=== PATIENT | female | born 1950 | race Caucasian/White ===

== ENCOUNTER → 2018-06-20 08:19 | Outpatient (CLI) | payer MEDICARE, OTHER, SELFPAY ==
[2018-06-20 09:26] LABS: Add Manual Diff / Slide Review NO; Basophils Percent Auto 2.2 % (0-2); Eosinophils Percent Auto 3.8 % (2-4); Hematocrit 42.2 % (36-46); Hemoglobin 14.2 g/dL (12.0-16.0); Lymphocytes Percent Auto 46.4 % (25-40); Mean Corpuscular HGB Conc 33.7 % (30-36); Mean Corpuscular Volume 94.9 fL (80-100); Monocytes Percent Auto 9.6 % (3-14); Neutrophils Absolute Auto 1600 /uL (1500-7000); Platelet Count 192 X10^3/uL (150-400); Red Blood Cell Count 4.44 X10^6/uL (4.0-5.2); Red Cell Distribution Width 13.7 % (11.6-14.8); White Blood Cell Count 4.1 X10^3/uL (4.5-11.0)
[2018-06-20 09:44] LABS: Alanine Aminotransferase 28 IU/L (9-52); Albumin 4.5 g/dL (3.5-5.0); Albumin Globulin Ratio 1.7 (1.0-2.8); Alkaline Phosphatase 66 U/L (38-126); Aspartate Aminotransferase 23 IU/L (14-36); BUN Creatinine Ratio 27.5 (6-22); Bilirubin Total 0.7 mg/dL (0.2-1.3); Blood Urea Nitrogen 22 mg/dL (7-17); Calcium 9.6 mg/dL (8.4-10.2); Carbon Dioxide 30 mmol/L (22-32); Chloride 98 mmol/L (98-107); Cholesterol 184 mg/dL (140-199); Estimated Glomerular Filt Rate > 60.0 mL/min (>60); Globulin 2.7 g/dL (1.7-4.1); Glucose 95 mg/dL (80-110); HDL Cholesterol 58 mg/dL (40-60); HEMOLYSIS < 15 (0-50); LDL Cholesterol Calculated 106 mg/dL (<100); Sodium 138 mmol/L (137-145); Total Protein 7.2 g/dL (6.3-8.2); Triglycerides 101 mg/dL (35-150)
[2018-06-20 10:28] LABS: TSH w/ Reflex to FT4 1.72 uIU/mL (0.47-4.68)
== END ==
PROVIDERS: PCP Family Medicine; Visit Provider Family Medicine
DX: R53.83 Other fatigue (principal); I10 Essential (primary) hypertension; E78.00 Pure hypercholesterolemia, unspecified
CPT/HCPCS: 36415; 80053; 80061; 84443; 85025

== ENCOUNTER → 2018-07-20 15:05 | Outpatient (CLI) | payer MEDICARE, OTHER, SELFPAY ==
[2018-07-20 15:59] LABS: Erythrocyte Sedimentation Rate 4 MM/HR (0-20)
[2018-07-20 16:07] LABS: Creatine Kinase 48 U/L (30-135)
[2018-07-20 16:08] LABS: C-Reactive Protein Quant < 0.5 mg/dL (<1.0)
== END ==
PROVIDERS: PCP Family Medicine; Visit Provider Family Medicine
DX: M79.10 Myalgia, unspecified site (principal)
CPT/HCPCS: 36415; 82550; 85651; 86140

== ENCOUNTER 2018-10-26 14:13 | Observation (INO) | payer MEDICARE, OTHER, SELFPAY ==
--- NOTE | 2018-10-26 | DI.ECHO.S_ITS ---
[facility] +---------+ : : [address] : [address] : : : : [id number] : : : : Phone: [phone] Echocardiogram Report + + :Name: YAEL ZARCO Study Date: 10/27/2018 Height: 66 in : :[facility] Exam Location: [facility] Weight: 165 lb : : Gender: Female BSA: 1.8 m2 : :: 1950 Age: 67 yrs BP: 136/76 mmHg: :Reason For Study: TIA : : Performed By: Miah Lua : :Referring: Sveta HUERTA E : + + Interpretation Summary Normal sinus rhythm. Are multiple LV size, wall thickness, wall motion and left ventricular systolic function.The ejection fraction is estimated to be 60-65%. Normal chamber sizes. No significant valvular abnormalities. No evidence of patent foramen ovale based on color flow Doppler. Bubble study was not done. No source of embolism identified. Procedure: A two-dimensional transthoracic echocardiogram with color flow and Doppler was performed. The study quality was technically adequate. There is no prior echocardiogram noted for this patient. The patient was in normal sinus rhythm during the exam. Left Ventricle: The left ventricle is normal in size. There is normal left ventricular wall thickness. The ejection fraction is estimated to be 60-65%. There are no focal wall motion abnormalities. Right Ventricle: The right ventricle is normal in size and function. Atria: Both atria are normal in size. The interatrial septum is intact with no evidence for an atrial septal defect. Mitral Valve: The mitral valve is normal in structure and function. There is trace mitral regurgitation. Aortic Valve: The aortic valve is trileaflet. The aortic valve opens well. No aortic regurgitation is present. Tricuspid Valve: The tricuspid valve is normal in structure and function. There is trace tricuspid regurgitation. The right ventricular systolic pressure is estimated to be at least 25 mmHg based on an estimated right atrial pressure of 3 mm Hg. Pulmonic Valve: The pulmonic valve is not well visualized. Great Vessels: The aortic root is normal size. The dimensions of the ascending aorta are normal. The pulmonary artery is normal size. The IVC is of normal diameter and collapses greater than 50% with a sniff. This suggests a low right atrial pressure of 3 mm Hg. Pericardium/ Pleura There is no pericardial effusion. There is no pleural effusion. MMode/2D Measurements & Calculations LVIDd: 4.2 cm LVOT diam: 1.9 cm LVIDs: 2.4 cm Ao root diam: 3.0 cm FS: 42.6 % Aortic Jxn: 2.2 cm EPSS: 0.16 cm asc Aorta Diam: 3.1 cm IVSd: 0.86 cm Ao Arch Diam (Prox Trans): 2.5 cm LVPWd: 0.94 cm LV gómez. diameter/BSA (cm/m^2): 2.3 LV sys. diameter/BSA (cm/m^2): 1.3 LA dimension: 3.6 cm RA long axis: 4.1 cm LA A2 area: 20.8 cm2 RA area: 12.3 cm2 LA A4 area: 15.2 cm2 RA vol: 31.1 ml LA length (vol): 4.9 cm RA : 16.9 ml/m2 LA vol: 54.5 ml IVC diam: 1.8 cm LA vol index: 29.6 ml/m2 Doppler Measurements & Calculations Ao V2 max: 125.6 cm/sec LVOT Max Ye: 95.2 cm/sec Ao V2 mean: 94.2 cm/sec LV V1 max P.6 mmHg Ao max P.3 mmHg LV V1 VTI: 21.6 cm Ao mean P.8 mmHg FREDI(I,D): 2.1 cm2 Ao V2 VTI: 29.3 cm FREDI(V,D): 2.2 cm2 sev ratio: 0.74 FREDI indexed to BSA (cm^2/m^2): 1.2 MV E max ye: 99.7 cm/sec TR max ye: 236.0 cm/sec MV A max ye: 94.4 cm/sec TR max P.3 mmHg MV E/A: 1.1 PA V2 max: 88.4 cm/sec Med Peak E' Ye: 7.1 cm/sec PA V2 mean: 64.6 cm/sec E/E' med: 14.0 PA mean P.8 mmHg Lat Peak E' Ye: 8.5 cm/sec PA pr(Accel): 39.1 mmHg E/E' lat: 11.8 PA Accel Time: 0.08 sec E/e' average: 12.9 MV dec time: 0.15 sec SV(LVOT): 62.7 ml Electronically signed by: Zuleyka Day M.D. on Reading Physician:10/27/2018 05:51 PM
[2018-10-26 14:21] VITALS: BP 134/73; PULSE 126; RESP 17; TEMP 37; O2SAT 99
--- NOTE | 2018-10-26 14:35 | DI.CT.S_ITS ---
PROCEDURE: CT HEAD/BRAIN WO CON INDICATIONS: altered mental status TECHNIQUE: Noncontrast 4.5 mm thick angled axial sections acquired from the foramen magnum to the vertex, with coronal and sagittal reformats. For radiation dose reduction, the following was used: automated exposure control, adjustment of mA and/or kV according to patient size. COMPARISON: None. FINDINGS: Image quality: Excellent. CSF spaces: Basal cisterns are patent. No extra-axial fluid collections. The ventricles are symmetric in size and shape. Brain: No intracranial bleeds or masses. There is cerebral volume loss for age, with resultant ventricular and sulcal prominence. There are periventricular and deep white matter chronic small vessel ischemic changes. There is intracranial internal carotid artery atherosclerosis. Skull and face: Calvarium and visualized facial bones appear intact, without suspicious lesions. Sinuses: Visualized sinuses and mastoids are clear. IMPRESSION: 1. No acute intracranial findings. Dictated by: Priscila Monsivais M.D. on 10/26/2018 at 14:58 Approved by: Priscila Monsivais M.D. on 10/26/2018 at 14:59
--- NOTE | 2018-10-26 16:19 | ED.AMS ---
HPI - Altered Mental Status <Milena Harris PA-C - Last Filed: 10/26/18 22:35> General Chief Complaint: Altered Mental Status Stated Complaint: thinks she had a TIA Time Seen by Provider: 10/26/18 16:19 Source: patient and old records reviewed Mode of arrival: ambulatory Limitations: no limitations History of Present Illness HPI narrative: This 67-year-old female comes to ED secondary to possible TIA while a board a cruise ship this morning. She states that she woke up feeling as she usually does, and was heading to breakfast when she felt like her legs were heavy ?not quite working right?. She states she sat down and she did not notice anything else, however friends who are with her notice that she seemed uncoordinated and was not able to get food to her mouth with her dominant (left) hand. She states that she does not know whether her right side was weak, did not notice any pain, numbness or tingling. She states that she does not think she had any speech difficulties but was not talking very much, difficult for her to follow conversation. Her friends did not notice any facial droop, and her arms were not weak. She states that she does not really know if her legs were weak, it was more of a discoordinated feeling. She states that she was sent to the ship's physician who did an EKG, ran numerous test, and advised next transferred to local hospital which she declined. Diagnosed with TIA and also pneumonia noted on a chest x-ray per she states that all of her symptoms had resolved within about 15 minutes. She denies any chest pain, palpitations, or nausea. She denies any lightheadedness. She did not have any vision change or facial weakness. She has not had any nausea or vomiting. She denies any cough, fever, or recent illness. She takes medication for blood pressure and cholesterol, no history of heart disease or CVA. She states that she recently had a carotid Doppler done for unrelated issues which apparently did not show significant findings. She states that she does not have family history of CVA or heart disease. She states she has a very slight lid droop at baseline Related Data Home Medications Medication Instructions Recorded Confirmed Lyrica 300 mg PO BEDTIME #0 11/03/16 10/26/18 calcium carbonate 600 mg PO DAILY #0 11/03/16 10/26/18 cholecalciferol (vitamin D3) 1,000 unit PO DAILY 10/26/18 10/26/18 [Vitamin D3] duloxetine 60 mg PO BEDTIME 10/26/18 10/26/18 lisinopril 10 mg PO DAILY 10/26/18 10/26/18 lovastatin 10 mg PO QPM 10/26/18 10/26/18 triamterene-hydrochlorothiazid 1 tab PO DAILY 10/26/18 10/26/18 Allergies Allergy/AdvReac Type Severity Reaction Status Date / Time No Known Drug Allergies Allergy Verified 10/26/18 19:28 Review of Systems <CARLEEN Watson Last Filed: 10/26/18 22:35> Review of Systems ROS Unobtainable: All systems reviewed & are unremarkable except as noted in HPI and below Exam <CARLEEN Watson Last Filed: 10/26/18 22:35> Narrative Exam Narrative: GENERAL APPEARANCE: Patient sitting comfortably, in no distress. HEENT: PERRL, EOMI, minimal eyelid asymmetry, normal oropharynx, PND noted NECK: Supple, no masses LUNGS: Clear to auscultation bilaterally, no cough on exam. HEART: Rate and rhythm regular without murmur, normal S1 and S2, no S3 or S4. ABDOMEN: Soft, NT, ND, + BS x 4 quadrants NEUROLOGIC: Alert and oriented, normal speech, and coordination. MUSCULOSKELETAL: Full Csp AROM Initial Vital Signs Initial Vital Signs: Vital Signs Temperature 98.6 F 10/26/18 14:21 Pulse Rate 126 H 10/26/18 14:21 Respiratory Rate 17 10/26/18 14:21 Blood Pressure 134/73 10/26/18 14:21 Pulse Oximetry 99 10/26/18 14:21 <Parminder Trujillo DO - Last Filed: 10/29/18 07:09> Initial Vital Signs Initial Vital Signs: Vital Signs Temperature 98.6 F 10/26/18 14:21 Pulse Rate 126 H 10/26/18 14:21 Respiratory Rate 17 10/26/18 14:21 Blood Pressure 134/73 10/26/18 14:21 Pulse Oximetry 99 10/26/18 14:21 Course <CARLEEN Watson Last Filed: 10/26/18 22:35> Additional Information: I have spoken with Dr. Valenzuela, on-call hospitalist regarding suspicion for TIA and requested admission for monitoring/further workup. He is agreeable. Patient remains asymptomatic, well-appearing, and requesting dinner while waiting or transfer Orders Ordered: Discontinued Medications Duloxetine HCl (Cymbalta) 60 mg PO BEDTIME [facility] Last Admin: 10/26/18 22:41 Dose: 60 mg Dextrose/Sodium Chloride (Dextrose 5%-0.9% Ns) 1,000 mls @ 50 mls/hr IV CONT [facility] Last Admin: 10/26/18 20:00 Dose: 50 mls/hr Potassium Chloride 40 meq/ (Sodium Chloride) 520 mls @ 130 mls/hr IV NOW ONE Stop: 10/27/18 01:03 Last Admin: 10/26/18 21:53 Dose: 130 mls/hr Lisinopril (Zestril) 10 mg PO DAILY [facility] Last Admin: 10/27/18 10:32 Dose: 10 mg Lovastatin (Mevacor) 10 mg PO QPM [facility] Pregabalin (Lyrica) 300 mg PO BEDTIME [facility] Last Admin: 10/26/18 22:43 Dose: 300 mg Triamterene/HCTZ (Maxide 37.5/25) 1 tab PO DAILY [facility] Last Admin: 10/27/18 10:32 Dose: 1 tab Vital Signs - 8 hr 10/26/18 18:40 10/26/18 19:10 10/26/18 19:28 Temperature 97.7 F Pulse Rate 66 82 111 H Respiratory Rate 16 20 25 H Blood Pressure 129/66 Blood Pressure [Left Arm] 128/67 164/92 H Pulse Oximetry 98 96 96 <Parminder Trujillo, - Last Filed: 10/29/18 07:09> Orders Ordered: Discontinued Medications Duloxetine HCl (Cymbalta) 60 mg PO BEDTIME [facility] Last Admin: 10/26/18 22:41 Dose: 60 mg Dextrose/Sodium Chloride (Dextrose 5%-0.9% Ns) 1,000 mls @ 50 mls/hr IV CONT [facility] Last Admin: 10/26/18 20:00 Dose: 50 mls/hr Potassium Chloride 40 meq/ (Sodium Chloride) 520 mls @ 130 mls/hr IV NOW ONE Stop: 10/27/18 01:03 Last Admin: 10/26/18 21:53 Dose: 130 mls/hr Lisinopril (Zestril) 10 mg PO DAILY [facility] Last Admin: 10/27/18 10:32 Dose: 10 mg Lovastatin (Mevacor) 10 mg PO QPM [facility] Pregabalin (Lyrica) 300 mg PO BEDTIME [facility] Last Admin: 10/26/18 22:43 Dose: 300 mg Triamterene/HCTZ (Maxide 37.5/25) 1 tab PO DAILY [facility] Last Admin: 10/27/18 10:32 Dose: 1 tab Vital Signs - 8 hr 10/26/18 18:40 10/26/18 19:10 10/26/18 19:28 Temperature 97.7 F Pulse Rate 66 82 111 H Respiratory Rate 16 20 25 H Blood Pressure 129/66 Blood Pressure [Left Arm] 128/67 164/92 H Pulse Oximetry 98 96 96 MDM - Altered Mental Status <Milena Harris PA-C - Last Filed: 10/26/18 22:35> Medical Records Attestation: I reviewed the patient's medical records. On board ship: CBC, BMP, cardiac enzymes, BNP and D-dimer WN L, EKG sinus rhythm borderline left axis deviation, normal urinalysis, x-ray read as patchy right lower lobe infiltrate Lab Data Attestation: I reviewed the patient's lab results. Result diagrams: 10/26/18 14:35 10/26/18 14:35 Lab Results 10/26/18 10/26/18 10/26/18 Range/Units 14:35 14:35 14:35 WBC 4.2 L (4.5-11.0) X10^3/uL RBC 4.35 (4.0-5.2) X10^6/uL Hgb 13.5 (12.0-16.0) g/dL Hct 41.4 (36-46) % MCV 95.2 (80-100) fL MCH 30.9 (26-34) PG MCHC 32.5 (30-36) % RDW 14.0 (11.6-14.8) % Plt Count 179 (150-400) X10^3/uL Neut % (Auto) 45.6 L (50-75) % Lymph % (Auto) 41.1 H (25-40) % [place] % (Auto) 9.0 (3-14) % Eos % (Auto) 3.2 (2-4) % Baso % (Auto) 1.1 (0-2) % Neut # (Auto) 1900 (2720-6035) /uL Lymph # (Auto) 1700 (6047-8704) /uL [place] # (Auto) 400 (0-900) /uL Eos # (Auto) 100 (0-450) /uL Baso # (Auto) 0 (0-100) /uL PT 10.2 (10.1-12.7) SECONDS INR 0.9 (0.9-1.3) APTT 27 (26.4-36.2) SECONDS Sodium 138 (137-145) mmol/L Potassium 3.2 L (3.4-5.1) mmol/L Chloride 101 (98-107) mmol/L Carbon Dioxide 29 (22-32) mmol/L BUN 16 (7-17) mg/dL Creatinine 0.80 (0.52-1.04) mg/dL Estimated GFR > 60.0 (>60) mL/min BUN/Creatinine Ratio 20.0 (6-22) Glucose 98 (80-110) mg/dL Calcium 9.3 (8.4-10.2) mg/dL Total Bilirubin 0.2 (0.2-1.3) mg/dL AST 27 (14-36) IU/L ALT 34 (9-52) IU/L Alkaline Phosphatase 60 (38-126) U/L Total Protein 7.5 (6.3-8.2) g/dL Albumin 4.4 (3.5-5.0) g/dL Globulin 3.1 (1.7-4.1) g/dL Albumin/Globulin Ratio 1.4 (1.0-2.8) Urine Color Urine Appearance Urine pH (4.5-8.0) Ur Specific [place] (1.000-1.035) Urine Protein (Negative) Urine Glucose (UA) (Negative) g/dL Urine Ketones (NEGATIVE) Urine Occult Blood (Negative) Urine Nitrate (Negative) Urine Bilirubin (NEGATIVE) Urine Urobilinogen (0.2) E.U./dL Ur Leukocyte Esterase (NEGATIVE) Urine RBC (0-5/HPF) Urine WBC (0-5/HPF) Urine Bacteria (None) Ur Culture Indicated? Micro UA Comment 05/10/19 Range/Units 22:00 WBC (4.5-11.0) X10^3/uL RBC (4.0-5.2) X10^6/uL Hgb (12.0-16.0) g/dL Hct (36-46) % MCV (80-100) fL MCH (26-34) PG MCHC (30-36) % RDW (11.6-14.8) % Plt Count (150-400) X10^3/uL Neut % (Auto) (50-75) % Lymph % (Auto) (25-40) % [place] % (Auto) (3-14) % Eos % (Auto) (2-4) % Baso % (Auto) (0-2) % Neut # (Auto) (7211-3511) /uL Lymph # (Auto) (0572-6664) /uL [place] # (Auto) (0-900) /uL Eos # (Auto) (0-450) /uL Baso # (Auto) (0-100) /uL PT (10.1-12.7) SECONDS INR (0.9-1.3) APTT (26.4-36.2) SECONDS Sodium (137-145) mmol/L Potassium (3.4-5.1) mmol/L Chloride (98-107) mmol/L Carbon Dioxide (22-32) mmol/L BUN (7-17) mg/dL Creatinine (0.52-1.04) mg/dL Estimated GFR (>60) mL/min BUN/Creatinine Ratio (6-22) Glucose (80-110) mg/dL Calcium (8.4-10.2) mg/dL Total Bilirubin (0.2-1.3) mg/dL AST (14-36) IU/L ALT (9-52) IU/L Alkaline Phosphatase (38-126) U/L Total Protein (6.3-8.2) g/dL Albumin (3.5-5.0) g/dL Globulin (1.7-4.1) g/dL Albumin/Globulin Ratio (1.0-2.8) Urine Color Yellow Urine Appearance Clear Urine pH 7.0 (4.5-8.0) Ur Specific [place] 1.015 (1.000-1.035) Urine Protein Negative (Negative) Urine Glucose (UA) Negative (Negative) g/dL Urine Ketones Negative (NEGATIVE) Urine Occult Blood Negative (Negative) Urine Nitrate Negative (Negative) Urine Bilirubin Negative (NEGATIVE) Urine Urobilinogen 0.2 (0.2) E.U./dL Ur Leukocyte Esterase Negative (NEGATIVE) Urine RBC None seen (0-5/HPF) Urine WBC None seen (0-5/HPF) Urine Bacteria None seen (None) Ur Culture Indicated? Cult not indicated Micro UA Comment Microscopic normal Imaging Data CT scan - head: Radiologist's impression: Shana Sierra 67 F [address] [address] [address] Scan Report Signed Patient: Shana Sierra LMR#: [id number] : 1950cct:[id number] Age/Sex: 67 / FDate of Service: 10/26/18 Loc: ED Accession Number: [id number] Procedure: CT head/brain wo con Ordering Provider: Parminder Trujillo D.O. PROCEDURE: CT HEAD/BRAIN WO CON INDICATIONS: altered mental status TECHNIQUE: Noncontrast 4.5 mm thick angled axial sections acquired from the foramen magnum to the vertex, with coronal and sagittal reformats. For radiation dose reduction, the following was used: automated exposure control, adjustment of mA and/or kV according to patient size. COMPARISON: None. FINDINGS: Image quality: Excellent. CSF spaces: Basal cisterns are patent. No extra-axial fluid collections. The ventricles are symmetric in size and shape. Brain: No intracranial bleeds or masses. There is cerebral volume loss for age, with resultant ventricular and sulcal prominence. There are periventricular and deep white matter chronic small vessel ischemic changes. There is intracranial internal carotid artery atherosclerosis. Skull and face: Calvarium and visualized facial bones appear intact, without suspicious lesions. Sinuses: Visualized sinuses and mastoids are clear. IMPRESSION: 1. No acute intracranial findings. Dictated by: Priscila Monsivais M.D. on 10/26/2018 at 14:58 Approved by: Priscila Monsivais M.D. on 10/26/2018 at 14:59 Chest x-ray: Radiologist's impression: [address] [address] XRay Report Signed Patient: Shana Sierra LMR#: [id number] : 9Acct:[id number] Age/Sex: 67 / FDate of Service: 10/26/18 Loc: ED Accession Number: [id number] Procedure: XR chest 2V Ordering Provider: Milena Harris P.A-C PROCEDURE: XR CHEST 2V INDICATIONS: TIA TECHNIQUE: 2 views of the chest were acquired. COMPARISON: None. FINDINGS: Surgical changes and devices: None. Lungs and pleura: Lungs are clear. No pleural effusions or pneumothorax. Mediastinum: Mediastinal contours are normal. Heart size is normal. Bones and chest wall: No suspicious bony abnormalities. Soft tissues appear unremarkable. IMPRESSION: No acute cardiopulmonary findings. Dictated by: Priscila Monsivais M.D. on 10/26/2018 at 16:59 Approved by: Priscila Monsivais M.D. on 10/26/2018 at 17:00 ECG Data Attestation: I personally reviewed and interpreted this ECG as follows: (Normal sinus rhythm with rate 72, borderline LAD, no ST changes) <Parminder Trujillo, - Last Filed: 10/29/18 07:09> Lab Data Lab Results 10/26/18 10/26/18 10/26/18 Range/Units 14:35 14:35 14:35 WBC 4.2 L (4.5-11.0) X10^3/uL RBC 4.35 (4.0-5.2) X10^6/uL Hgb 13.5 (12.0-16.0) g/dL Hct 41.4 (36-46) % MCV 95.2 (80-100) fL MCH 30.9 (26-34) PG MCHC 32.5 (30-36) % RDW 14.0 (11.6-14.8) % Plt Count 179 (150-400) X10^3/uL Neut % (Auto) 45.6 L (50-75) % Lymph % (Auto) 41.1 H (25-40) % [place] % (Auto) 9.0 (3-14) % Eos % (Auto) 3.2 (2-4) % Baso % (Auto) 1.1 (0-2) % Neut # (Auto) 1900 (0670-9940) /uL Lymph # (Auto) 1700 (9640-9835) /uL [place] # (Auto) 400 (0-900) /uL Eos # (Auto) 100 (0-450) /uL Baso # (Auto) 0 (0-100) /uL PT 10.2 (10.1-12.7) SECONDS INR 0.9 (0.9-1.3) APTT 27 (26.4-36.2) SECONDS Sodium 138 (137-145) mmol/L Potassium 3.2 L (3.4-5.1) mmol/L Chloride 101 (98-107) mmol/L Carbon Dioxide 29 (22-32) mmol/L BUN 16 (7-17) mg/dL Creatinine 0.80 (0.52-1.04) mg/dL Estimated GFR > 60.0 (>60) mL/min BUN/Creatinine Ratio 20.0 (6-22) Glucose 98 (80-110) mg/dL Calcium 9.3 (8.4-10.2) mg/dL Total Bilirubin 0.2 (0.2-1.3) mg/dL AST 27 (14-36) IU/L ALT 34 (9-52) IU/L Alkaline Phosphatase 60 (38-126) U/L Total Protein 7.5 (6.3-8.2) g/dL Albumin 4.4 (3.5-5.0) g/dL Globulin 3.1 (1.7-4.1) g/dL Albumin/Globulin Ratio 1.4 (1.0-2.8) Urine Color Urine Appearance Urine pH (4.5-8.0) Ur Specific [place] (1.000-1.035) Urine Protein (Negative) Urine Glucose (UA) (Negative) g/dL Urine Ketones (NEGATIVE) Urine Occult Blood (Negative) Urine Nitrate (Negative) Urine Bilirubin (NEGATIVE) Urine Urobilinogen (0.2) E.U./dL Ur Leukocyte Esterase (NEGATIVE) Urine RBC (0-5/HPF) Urine WBC (0-5/HPF) Urine Bacteria (None) Ur Culture Indicated? Micro UA Comment 10/26/18 Range/Units 22:00 WBC (4.5-11.0) X10^3/uL RBC (4.0-5.2) X10^6/uL Hgb (12.0-16.0) g/dL Hct (36-46) % MCV (80-100) fL MCH (26-34) PG MCHC (30-36) % RDW (11.6-14.8) % Plt Count (150-400) X10^3/uL Neut % (Auto) (50-75) % Lymph % (Auto) (25-40) % [place] % (Auto) (3-14) % Eos % (Auto) (2-4) % Baso % (Auto) (0-2) % Neut # (Auto) (7306-0663) /uL Lymph # (Auto) (7845-6714) /uL [place] # (Auto) (0-900) /uL Eos # (Auto) (0-450) /uL Baso # (Auto) (0-100) /uL PT (10.1-12.7) SECONDS INR (0.9-1.3) APTT (26.4-36.2) SECONDS Sodium (137-145) mmol/L Potassium (3.4-5.1) mmol/L Chloride (98-107) mmol/L Carbon Dioxide (22-32) mmol/L BUN (7-17) mg/dL Creatinine (0.52-1.04) mg/dL Estimated GFR (>60) mL/min BUN/Creatinine Ratio (6-22) Glucose (80-110) mg/dL Calcium (8.4-10.2) mg/dL Total Bilirubin (0.2-1.3) mg/dL AST (14-36) IU/L ALT (9-52) IU/L Alkaline Phosphatase (38-126) U/L Total Protein (6.3-8.2) g/dL Albumin (3.5-5.0) g/dL Globulin (1.7-4.1) g/dL Albumin/Globulin Ratio (1.0-2.8) Urine Color Yellow Urine Appearance Clear Urine pH 7.0 (4.5-8.0) Ur Specific [place] 1.015 (1.000-1.035) Urine Protein Negative (Negative) Urine Glucose (UA) Negative (Negative) g/dL Urine Ketones Negative (NEGATIVE) Urine Occult Blood Negative (Negative) Urine Nitrate Negative (Negative) Urine Bilirubin Negative (NEGATIVE) Urine Urobilinogen 0.2 (0.2) E.U./dL Ur Leukocyte Esterase Negative (NEGATIVE) Urine RBC None seen (0-5/HPF) Urine WBC None seen (0-5/HPF) Urine Bacteria None seen (None) Ur Culture Indicated? Cult not indicated Micro UA Comment Microscopic normal Discharge Plan Departure Patient Disposition: Admitted as Observation Clinical Impression: TIA (transient ischemic attack) Discharge Date/Time: 10/26/18 18:45 Interventions: ED Discharge Assessment Last Done: 10/26/18 18:15 Admit Date/Time: 10/26/18 18:22 Admit Provider: Sveta Valenzuela <Parminder Trujillo DO - Last Filed: 10/29/18 07:09> Cosign ED Attending Reagan Attestation: I was immediately available in the department for consultation. Documentation has been reviewed. I agree with assessment and plan.
--- NOTE | 2018-10-26 16:40 | DI.RAD.S_ITS ---
PROCEDURE: XR CHEST 2V INDICATIONS: TIA TECHNIQUE: 2 views of the chest were acquired. COMPARISON: None. FINDINGS: Surgical changes and devices: None. Lungs and pleura: Lungs are clear. No pleural effusions or pneumothorax. Mediastinum: Mediastinal contours are normal. Heart size is normal. Bones and chest wall: No suspicious bony abnormalities. Soft tissues appear unremarkable. IMPRESSION: No acute cardiopulmonary findings. Dictated by: Priscila Monsivais M.D. on 10/26/2018 at 16:59 Approved by: Priscila Monsivais M.D. on 10/26/2018 at 17:00
[2018-10-26 16:53] LABS: INR 0.9 (0.9-1.3); Prothrombin Time 10.2 SECONDS (10.1-12.7)
[2018-10-26 16:55] LABS: PTT Partial Thromboplastin Tim 27 SECONDS (26.4-36.2)
[2018-10-26 16:58] LABS: Alanine Aminotransferase 34 IU/L (9-52); Albumin 4.4 g/dL (3.5-5.0); Albumin Globulin Ratio 1.4 (1.0-2.8); Alkaline Phosphatase 60 U/L (38-126); Aspartate Aminotransferase 27 IU/L (14-36); Bilirubin Total 0.2 mg/dL (0.2-1.3); Blood Urea Nitrogen 16 mg/dL (7-17); Calcium 9.3 mg/dL (8.4-10.2); Carbon Dioxide 29 mmol/L (22-32); Chloride 101 mmol/L (98-107); Estimated Glomerular Filt Rate > 60.0 mL/min (>60); Globulin 3.1 g/dL (1.7-4.1); Glucose 98 mg/dL (80-110); HEMOLYSIS < 15 (0-50); Potassium 3.2 mmol/L (3.4-5.1); Sodium 138 mmol/L (137-145); Total Protein 7.5 g/dL (6.3-8.2)
[2018-10-26 17:12] LABS: Add Manual Diff / Slide Review NO; Basophils Absolute Auto 0 /uL (0-100); Basophils Percent Auto 1.1 % (0-2); Eosinophils Absolute Auto 100 /uL (0-450); Eosinophils Percent Auto 3.2 % (2-4); Hematocrit 41.4 % (36-46); Hemoglobin 13.5 g/dL (12.0-16.0); Lymphocytes Absolute Auto 1700 /uL (1100-4500); Lymphocytes Percent Auto 41.1 % (25-40); Mean Corpuscular HGB Conc 32.5 % (30-36); Mean Corpuscular Hemoglobin 30.9 PG (26-34); Mean Corpuscular Volume 95.2 fL (80-100); Monocytes Absolute Auto 400 /uL (0-900); Neutrophils Absolute Auto 1900 /uL (1500-7000); Neutrophils Percent Auto 45.6 % (50-75); Platelet Count 179 X10^3/uL (150-400); Red Blood Cell Count 4.35 X10^6/uL (4.0-5.2); White Blood Cell Count 4.2 X10^3/uL (4.5-11.0)
[2018-10-26 18:40] VITALS: BP 128/67; PULSE 66; RESP 16; O2SAT 98
[2018-10-26 19:10] VITALS: BP 129/66; PULSE 82; RESP 20; TEMP 36.5; O2SAT 96
[2018-10-26 19:12] VITALS: BMI 26.6
[2018-10-26 19:28] VITALS: BP 164/92; PULSE 111; RESP 25; O2SAT 96
[2018-10-26] MEDS: DEXTROSE 5%-0.9% NS 1,000 ML 50 ML IV (20:00)
[2018-10-26 21:00] VITALS: O2SAT 97
[2018-10-26] MEDS: POTASSIUM CHLORIDE 40 MEQ in SODIUM CHLORIDE 0.9% 500 ML 130 ML IV (21:53)
--- NOTE | 2018-10-26 21:57 | PM.HP.1 ---
History of Present Illness Date Patient Seen: 10/26/18 Time Patient Seen: 20:18 Chief complaint: thinks she had a TIA Narrative: Shana Sierra is a 67-year-old female patient with a history hypertension hyperlipidemia, chronic urethral burning for which she takes Lyrica and duloxetine who presents to the ER today following developing neurological symptoms while on a cruise docking in [place] today. The patient indicates that she woke today without any complaints of pain or problems than approximately 20 minutes later felt herself feeling somewhat clumsy and then lightheaded. She developed some weakness blurred vision and bilateral ataxia and while at breakfast had difficulty feeding herself. The patient was evaluated by physician [facility] alexandra at which time the patient's symptoms had all but resolved. Patient was advised at that time to go to the hospital and [place] upon docking. The patient chose to return to [place] and presenting to the ER for follow-up evaluation. The patient states her symptoms principally resolved within about 15 minutes reports no lingering symptoms of headache visual changes dysphagia or dysarthria, weakness or alteration in sensation. She reports no recent fevers or chills however she does report fatigue for the last 3 days. She has had no nasal congestion or sore throat. She denies chest pain or palpitations, shortness breath cough or wheezing. She denies abdominal pain, nausea vomiting, diarrhea constipation. She has been worked up for possible interstitial cystitis for chronic urinary frequency burning and urgency which occurs when she lays down night. She is diagnosed with pelvic floor dysfunction with pain which is adequately controlled with duloxetine and Lyrica. -in the ER the patient was afebrile with a temperature of 98.6?, was tachycardic at 1:26 a.m. with a blood pressure 134/73 and respirations 17 and 99% on room air. A chest x-ray was taken chipped board with report of right lower lobe pneumonia not evident on repeat chest x-ray in the ER today. CT scan finds no acute intracranial pathology. The patient's CBC is within normal limits. On chemistry she does have a low potassium at 3.2. The patient will be admitted for TIA and cardiac and neurological monitoring. Patient History Medical History Chronic lower limb pain (Chronic) Urethral pain (Chronic) Hyperlipidemia (Chronic) HTN (hypertension) (Chronic) History of torn meniscus of left knee (Acute) Pelvic floor dysfunction (Acute) Surgical History (Updated 10/26/18 @ 22:30 by MERLE Ames) No history of previous surgery (Chronic) History of cataract surgery (Acute) History of left knee surgery (Acute) Social History household members: spouse Smoking Status: Never smoker alcohol intake: current Family & Social History Social History: household members spouse Prior Living Arrangements House Safety & Behavioral: Feels Safe in Current Yes Environment Been Physically Hurt or No Threatened By a Person Suicidal Ideation Description None Tobacco & Substance use: Smoking Status Never smoker alcohol intake current alcohol intake frequency a few times a week Substance Use Type does not use Comment: Patient currently lives with her of 47 years in a single family home. She has a family history with her father having colon cancer, her mother of lung cancer at 86 and a brother with prostate cancer. Smoking: The patient has never smoked Alcohol: Patient admits to 1-1/2 bottles of wine per week with her Substance use: Patient denies recreation pharmaceuticals herbal or cannabis products. Advanced directives: The patient has advanced directives and wishes to be a FULL CODE. She designates her Wisam be her surrogate decision maker. Meds Home Medications Medication Instructions Recorded Confirmed Type Lyrica 300 mg PO BEDTIME #0 11/03/16 10/26/18 History calcium carbonate 600 mg PO DAILY #0 11/03/16 10/26/18 History cholecalciferol (vitamin D3) 1,000 unit PO DAILY 10/26/18 10/26/18 History [Vitamin D3] duloxetine 60 mg PO BEDTIME 10/26/18 10/26/18 History lisinopril 10 mg PO DAILY 10/26/18 10/26/18 History lovastatin 10 mg PO QPM 10/26/18 10/26/18 History triamterene-hydrochlorothiazid 1 tab PO DAILY 10/26/18 10/26/18 History Allergies Allergy/AdvReac Type Severity Reaction Status Date / Time No Known Drug Allergies Allergy Verified 10/26/18 19:28 Review of Systems Review of Systems All systems reviewed & are unremarkable except as noted in HPI and below Exam Vital Signs (past 8 hours): - 10/26/18 14:21 10/26/18 18:40 10/26/18 19:10 Temperature 98.6 F 97.7 F Pulse Rate 126 H 66 82 Respiratory Rate 17 16 20 Blood Pressure 134/73 129/66 Blood Pressure [Left Arm] 128/67 Pulse Oximetry 99 98 96 10/26/18 19:28 Temperature Pulse Rate 111 H Respiratory Rate 25 H Blood Pressure Blood Pressure [Left Arm] 164/92 H Pulse Oximetry 96 Oxygen Delivery Method Room Air Narrative Exam Narrative: GENERAL APPEARANCE: well developed, well nourished, in no acute distress. HEAD: Normocephalic, atraumatic, no scalp lesions. EYES: pupils equal, round, reactive to light and accommodation, sclera non-icteric, extraocular movement intact without nystagmus. EARS: Patient uses hearing aids bilaterally, normal external structures, no ear pain NOSE: sinuses non tender to percussion, no rhinorrhea ORAL CAVITY: mucosa moist without lesions or exudate, palate normal, tongue in midline. THROAT: normal, no erythema, no exudate, pharynx normal, uvula midline. NECK/THYROID: neck supple, no jugular venous distention, no carotid bruit, no thyromegaly, trachea midline. LYMPH NODES: no cervical or supraclavicular lymphadenopathy. SKIN: warm and dry, no suspicious lesions, no rashes, good turgor. HEART: regular rate and rhythm, S1-S2 without murmur, no rubs or gallops, brisk capillary refill, 1+ dorsalis pedis pulses. LUNGS: clear to auscultation bilaterally, no coarseness crackles or wheezing, no cough present CHEST: Symmetrical movement, no accessory muscle use, no pain to AP and lateral compression. ABDOMEN: Soft, no distention, no epigastric or abdominal tenderness on palpation, no guarding or peritoneal signs, no organomegaly, no flank or suprapubic tenderness, active bowel tones. BACK: Normal curvature, nontender to palpation, no CVA tenderness on percussion EXTREMITIES: moves all extremities, strength is 5/5 and symmetrical, well perfused, trace pedal edema. NEUROLOGIC: AAO x4, symmetrical facies, no ptosis, symmetrical grimace, cranial nerves II-XII grossly intact , intact rapid alternating movements, motor strength is equal upper and lower extremities without drift, sensory exam intact to light touch, hearing grossly normal to speech. PSYCH: alert, cognitive function intact, good eye contact, stable mood with congruent affect Objective Labs Result Diagrams: 10/26/18 14:35 10/26/18 14:35 Labs: Laboratory Results - last 24 hr 10/26/18 10/26/18 10/26/18 14:35 14:35 14:35 WBC 4.2 L RBC 4.35 Hgb 13.5 Hct 41.4 MCV 95.2 MCH 30.9 MCHC 32.5 RDW 14.0 Plt Count 179 Neut % (Auto) 45.6 L Lymph % (Auto) 41.1 H [place] % (Auto) 9.0 Eos % (Auto) 3.2 Baso % (Auto) 1.1 Neut # (Auto) 1900 Lymph # (Auto) 1700 [place] # (Auto) 400 Eos # (Auto) 100 Baso # (Auto) 0 PT 10.2 INR 0.9 APTT 27 Sodium 138 Potassium 3.2 L Chloride 101 Carbon Dioxide 29 BUN 16 Creatinine 0.80 Estimated GFR > 60.0 BUN/Creatinine Ratio 20.0 Glucose 98 Calcium 9.3 Total Bilirubin 0.2 AST 27 ALT 34 Alkaline Phosphatase 60 Total Protein 7.5 Albumin 4.4 Globulin 3.1 Albumin/Globulin Ratio 1.4 Assessment & Plan Assessment & Plan narrative: The patient is a 67-year-old female patient with neurological symptoms of weakness clumsiness ataxia in discoordination that were sudden in onset and spontaneously resolved. 1. Transitory ischemic attack, acute -patient with symptoms lasting approximately 15 minutes with weakness, clumsiness, ataxia, discoordination -patient evaluated by ship board physician with reported resolution of symptoms. -risk factors including hypertension hyperlipidemia -no significant findings identified on exam, NIH stroke evaluation every 4 hours -MR stroke protocol -echocardiogram 2. Hypertension, present on admission, chronic -no complaints of headache, visual changes, chest pain or shortness of breath. -blood pressure of 134/73 upon arrival in the ER and subsequently 164/92 on admission -will continue patient's lisinopril 10 mg, Trimenterine/hydrochlorothiazide 37.5/25 mg daily 3. Hyperlipidemia, chronic, presumed stable -will continue lovastatin 20 mg daily, will consider and discuss with patient changed to atorvastatin -will obtain lipid panel 4. Pelvic floor dysfunction, chronic, stable -continue patient's home medications of duloxetine 60 mg and Lyrica 300 mg at bedtime. The patient is admitted to the hospital due to severity of symptoms and need for monitoring and further evaluation. Expected length of stay to be less than 2 midnights.
[2018-10-26] MEDS: DULOXETINE 30 MG CAPSULE 60 MG PO (22:41)
[2018-10-26] MEDS: PREGABALIN 50 MG CAPSULE 300 MG PO (22:43)
[2018-10-26 23:02] LABS: Bacteria Urine None Seen; RBC Urine None Seen (0-5/HPF); WBC Urine None Seen (0-5/HPF)
[2018-10-26 23:03] LABS: Appearance Urine UA CLEAR; Bilirubin Urine UA NEGATIVE (NEGATIVE); Color Urine UA YELLOW; Glucose Urine UA NEGATIVE (Negative); Ketones Urine UA NEGATIVE (NEGATIVE); Leukocyte Esterase Urine UA NEGATIVE (NEGATIVE); Nitrite Urine UA NEGATIVE (Negative); Occult Blood Urine UA NEGATIVE (Negative); Protein Urine UA NEGATIVE (Negative); Specific Gravity Urine UA 1.015 (1.000-1.035); Urobilinogen Urine UA 0.2 E.U./dL (0.2)
[2018-10-26 23:11] LABS: Culture Indicated Urine Cult Not Indicated; Urine Comments Microscopic Normal
--- NOTE | 2018-10-26 23:49 | PC.NURSE ---
Admit note: A&OX4. 97%RA. no pain, no n/v, cms+. independent in room. NIH: 0. IVF infusing. oriented pt to room. call light in reach.
--- NOTE | 2018-10-27 | DI.MRI.S_ITS ---
PROCEDURE: MR STROKE Pre- and post-contrast brain MRI, non-contrast brain MR angiogram, pre- and postcontrast neck MR angiogram INDICATIONS: TIA TECHNIQUE: Brain: Noncontrast axial T1 spin echo, axial T2 fast spin echo, sagittal and axial FLAIR, coronal T2 fast spin echo, axial gradient echo, axial diffusion and ADC through the brain. After the administration of contrast, axial 3D VIBE of the cranial vasculature and brain. Brain MRA: Non-contrast 3-D time of flight MR angiogram, with multiple yjyedef-jvrqzadju-gdajwbfwnf (MIP) reformats performed. Neck MRA: Axial and sagittal TruFISP through the neck. Coronal dynamic MR angiogram during administration of contrast in the arterial and venous phases, with 3-dimenstional puccbuh-lkwnnipgn-sgitfcrwxb (MIP) reformats constructed from subtraction images. COMPARISON: None. FINDINGS: Image quality: Excellent. BRAIN: CSF spaces: Ventricles are normal in size and shape. Basal cisterns are patent. No extra-axial fluid collections. Brain: No intracranial bleeds or mass effects. Weldon-white matter interface is normal. Diffusion weighted images show no acute ischemic insults. Mild brain parenchymal volume loss is seen. Mild chronic small vessel ischemic change is seen. Brainstem appears normal. Normal intravascular flow voids are present. No abnormal intracranial enhancement. Skull and face: Calvarial marrow signal is normal. Orbits appear normal. Note is made of bilateral lens replacements. Sinuses: There is complete opacification of the right maxillary sinus. Sinuses and mastoids are otherwise clear. BRAIN MR ANGIOGRAM: Anterior circulation: Intracranial internal carotid arteries are normal in size and enhancement. The flow within the paired anterior cerebral arteries is normal and symmetric. The brainstem is noted, with an accessory intracerebral artery therefrom the left aspect of the anterior communicating artery. The flow within the middle cerebral arteries is normal and symmetric. The anterior communicating artery is seen. No stenoses, occlusions, or aneurysms. Posterior circulation: The visualized portions of the vertebral arteries demonstrate normal caliber, and join to form a normal appearing basilar artery. The flow within the posterior cerebral arteries is normal and symmetric. No stenoses, occlusions, or aneurysms. NECK MR ANGIOGRAM: Carotids: Incidental note is made of a common origin of the right brachiocephalic artery and the left common carotid artery (bovine type arch). This is considered to be a developmental variant of no clinical consequence. The origins of the common carotid arteries appear patent. The calibers and courses of both common carotid arteries are normal. The bifurcation regions appear normal bilaterally. The internal carotid arteries demonstrate normal caliber. The internal carotid arteries are highly tortuous. Posterior circulation: The origins of the vertebral arteries appear patent. More superior portions of both vertebral arteries demonstrate normal course and caliber, and join to form a normal appearing basilar artery. Miscellaneous: Subclavian arteries appear patent. Pre-contrast images through the neck show no soft tissue abnormalities. IMPRESSION: BRAIN MRI: No findings of acute or subacute infarction can be seen. No intracranial masses or abnormal intracranial enhancement can be seen. Note is made of age-appropriate brain parenchymal volume loss and chronic small vessel ischemic changes. BRAIN MR ANGIOGRAM: No significant intracranial arterial abnormality is seen. Incidental note is made of variant anatomy with an accessory anterior cerebral artery with its origin from the left aspect of the anterior communicating artery. NECK MR ANGIOGRAM: No hemodynamically significant stenosis is seen of the arteries of the Prominent tortuosity is noted of internal carotid arteries. Bovine type aortic branching pattern incidentally noted. Dictated by: Odilon Mullins M.D. on 10/27/2018 at 11:45 Approved by: Odilon Mullins M.D. on 10/27/2018 at 11:51
[2018-10-27 00:05] VITALS: BP 127/70; PULSE 74; RESP 16; TEMP 37; O2SAT 93
--- NOTE | 2018-10-27 00:54 | PC.NURSE ---
2300- Pt admit for TIA obs at this time; q4hr neuro checks taking place. Moving indep in room; tolerating regular diet w/ no difficulty swallowing. NIH score of 0; pt A+Ox4. K+ running as ordered into periph IV. Shashi Hose applied to bilat legs; UA sent.
[2018-10-27 04:10] VITALS: BP 139/76; PULSE 71; RESP 16; TEMP 36.7; O2SAT 97
[2018-10-27 08:00] VITALS: BP 136/76; PULSE 68; RESP 16; TEMP 36.4; O2SAT 96
[2018-10-27] MEDS: TRIAMTERENE/HCTZ 37.5/25 TABLET 1 CAP PO (10:32)
[2018-10-27] MEDS: LISINOPRIL 10 MG TABLET PO (10:32)
[2018-10-27 10:47] VITALS: O2SAT 96
[2018-10-27 12:00] VITALS: BP 132/70; PULSE 64; RESP 16; TEMP 36.7; O2SAT 96
--- NOTE | 2018-10-27 12:57 | CM.DANOTE ---
DCP: Case received, EMR reviewed and met with patient. Spouse, Diomedes, was also at bedside. Information retrieved from patient regarding her baseline health. DCP template was completed with the information currently available. Patient is a 67 year old female who admitted yesterday afternoon to the care of the hospitalist team. PCP: Dr. Varma. Payer: confirmed: Medicare/[employer]. Patient came to hospital via family vehicle due to her concerns that she may be having a TIA. Patient had been on board of a cruise to [place], when she developed these symptoms. Spoke to patient in her room, stated, she just felt weak, like her legs were giving out. She is independent , and resides with her spouse, Diomedes, here in [place]. P: DCP to continue to follow. At this time, she is under observation, and may be getting further testing before returning home. Dimple Basurto RN/Marketing Support Specialist
--- NOTE | 2018-10-27 15:46 | P.DS_ITS ---
History of Present Illness Chief complaint: thinks she had a TIA Narrative: Shana Sierra is a 67-year-old female patient with a history h ypertension hyperlipidemia, chronic urethral burning for which she takes Lyrica and duloxetine who presents to the ER today following developing neurological symptoms while on a cruise docking in [place] today. The patient indicates that she woke today without any complaints of pain or problems than approximately 20 minutes later felt herself feeling somewhat clumsy and then lightheaded. She developed some weakness blurred vision and bilateral ataxia and while at breakfast had difficulty feeding herself. The patient was evaluated by physician milind morris at which time the patient's symptoms had all but resolved. Patient was advised at that time to go to the hospital and [place] upon docking. The patient chose to return to [place] and presenting to the ER for follow-up evaluation. The patient states her symptoms principally resolved within about 15 minutes reports no lingering symptoms of headache visual changes dysphagia or dysarthria, weakness or alteration in sensation. Sh e reports no recent fevers or chills however she does report fatigue for the last 3 days. She has had no nasal congestion or sore throat. She denies chest pain or palpitations, shortness breath cough or wheezing. She denies abdominal pain, nausea vomiting, diarrhea constipation. She has been worked up for possible interstitial cystitis for chronic urinary frequency burning and urgency which occurs when she lays down night. She is diagnosed with pelvic floor dysfunction with pain which is adequately controlled with duloxetine and Lyrica. -in the ER the patient was afebrile with a temperature of 98.6?, was tachycardic at 1:26 a.m. with a blood pressure 134/73 and respirations 17 and 99% on room air. A chest x-ray was taken chipped board with report of right lower lobe pneumonia not evident on repeat chest x-ray in the ER today. CT scan finds no acute intracranial pathology. The patient's CBC is within normal limits. On chemistry she does have a low potassium at 3.2. The patient will be admitted for TIA and cardiac and neurological monitoring. Discharge Providers Date of admission: 10/26/18 18:22 Discharge Date: 10/27/18 Primary care physician: Janis Varma MD Discharge provider: Jose Corral MD Summary Discharge Diagnosis: 1. Acute ataxia, undetermined etiology 2. Mild hypokalemia 3. Hypertension 4. Hyperlipidemia Hospital Course: Patient admitted due to concern for possible TIA presenting with 50 minutes episode of weakness, bilateral clumsiness, and lightheaded while on a cruise. Vitals normal. EKG and cardiac enzymes were normal. No evidence of AFib on her cardiac monitoring. Head CT normal. Brain MR stroke protocol without any ischemic findings and MRA portion also looked normal. A transthoracic echo was performed and report pending at time of discharge. Patient expressed interest to discharge and follow up on echo report with her PCP. It is not clear whether this was truly TIA episode or some acute vestibular event. She has not had any recurrence since initial episode. Discharged in stable condition. Status at Discharge Cognitive/behavioral status at discharge: oriented Functional status at discharge: independent ambulation Overall status at discharge: patient is back to baseline Time Spent with Patient Less than 30 minutes Exam Vital Signs (past 8 hours): - 10/27/18 08:00 10/27/18 10:47 10/27/18 12:00 Temperature 97.6 F 98.1 F Pulse Rate 68 64 Respiratory Rate 16 16 Blood Pressure 136/76 132/70 Pulse Oximetry 96 96 96 Oxygen Delivery Method Room Air Objective Labs Result Diagrams: 10/26/18 14:35 10/26/18 14:35 Labs: Laboratory Results - last 24 hr 10/26/18 10/26/18 10/26/18 14:35 14:35 14:35 WBC 4.2 L RBC 4.35 Hgb 13.5 Hct 41.4 MCV 95.2 MCH 30.9 MCHC 32.5 RDW 14.0 Plt Count 179 Neut % (Auto) 45.6 L Lymph % (Auto) 41.1 H [place] % (Auto) 9.0 Eos % (Auto) 3.2 Baso % (Auto) 1.1 Neut # (Auto) 1900 Lymph # (Auto) 1700 [place] # (Auto) 400 Eos # (Auto) 100 Baso # (Auto) 0 PT 10.2 INR 0.9 APTT 27 Sodium 138 Potassium 3.2 L Chloride 101 Carbon Dioxide 29 BUN 16 Creatinine 0.80 Estimated GFR > 60.0 BUN/Creatinine Ratio 20.0 Glucose 98 Calcium 9.3 Total Bilirubin 0.2 AST 27 ALT 34 Alkaline Phosphatase 60 Total Protein 7.5 Albumin 4.4 Globulin 3.1 Albumin/Globulin Ratio 1.4 Urine Color Urine Appearance Urine pH Ur Specific [place] Urine Protein Urine Glucose (UA) Urine Ketones Urine Occult Blood Urine Nitrate Urine Bilirubin Urine Urobilinogen Ur Leukocyte Esterase Urine RBC Urine WBC Urine Bacteria Ur Culture Indicated? Micro UA Comment 10/26/18 22:00 WBC RBC Hgb Hct MCV MCH MCHC RDW Plt Count Neut % (Auto) Lymph % (Auto) [place] % (Auto) Eos % (Auto) Baso % (Auto) Neut # (Auto) Lymph # (Auto) [place] # (Auto) Eos # (Auto) Baso # (Auto) PT INR APTT Sodium Potassium Chloride Carbon Dioxide BUN Creatinine Estimated GFR BUN/Creatinine Ratio Glucose Calcium Total Bilirubin AST ALT Alkaline Phosphatase Total Protein Albumin Globulin Albumin/Globulin Ratio Urine Color Yellow Urine Appearance Clear Urine pH 7.0 Ur Specific [place] 1.015 Urine Protein Negative Urine Glucose (UA) Negative Urine Ketones Negative Urine Occult Blood Negative Urine Nitrate Negative Urine Bilirubin Negative Urine Urobilinogen 0.2 Ur Leukocyte Esterase Negative Urine RBC None seen Urine WBC None seen Urine Bacteria None seen Ur Culture Indicated? Cult not indicated Micro UA Comment Microscopic normal Discharge Plan Discharge Plan Patient Disposition: Home Discharge Med Rec/Prescriptions Prescriptions: Continued calcium carbonate 600 MG tablet 600 mg PO DAILY Qty: 0 RF: 0 Lyrica 200 MG capsule 300 mg PO BEDTIME Qty: 0 RF: 0 lovastatin 10 mg Tablet 10 mg PO QPM RF: 0 lisinopril 10 mg Tablet 10 mg PO DAILY RF: 0 triamterene-hydrochlorothiazid 37.5-25 mg Tablet 1 tab PO DAILY RF: 0 duloxetine 60 mg Capsule,Delayed Release(Dr/Ec) 60 mg PO BEDTIME RF: 0 cholecalciferol (vitamin D3) [Vitamin D3] 1,000 unit Tablet 1,000 unit PO DAILY RF: 0 Follow up/Referrals: Janis Varma MD [Primary Care Provider] - Provider Discharge Instructions Diet: Diet as Tolerated Discharge Data Primary Care Provider: Janis Varma Attending Provider: Sveta Valenzuela Admit Date/Time: 10/26/18 18:22
--- NOTE | 2018-11-20 13:19 | PC.NURSE ---
Stop time for Dextrose 5%-0.9% NS 1,000ml is 10/26/18 at 2108 Stop time for Potassium Chloride 40meq in Sodium Chloride 0.9% is 10/27/18 at 015
== END 2018-10-27 15:58 | disposition home or self-care (01) ==
LOC: ED 17:35 → AC 18:23
PROVIDERS: Nurse Practitioner Adult Health; Admitting Provider Family Medicine; Emergency Provider Internal Medicine; PCP Family Medicine; Visit Provider Family Medicine
DX: R27.8 Other lack of coordination (principal); R41.82 Altered mental status, unspecified; E87.6 Hypokalemia; I10 Essential (primary) hypertension; E78.5 Hyperlipidemia, unspecified; R39.15 Urgency of urination; N36.8 Other specified disorders of urethra
CPT/HCPCS: 70450; 70548; 70553; 71046; 80053; 81001; 85025; 85610; 85730; 93005; 93010; 93306; 96360; 96361; 99283; 99285; G0378; J3480

== ENCOUNTER → 2019-01-22 11:53 | Outpatient (CLI) | payer MEDICARE, OTHER, SELFPAY ==
[2019-01-22 12:04] LABS: Bacteria Urine None Seen; RBC Urine None Seen (0-5/HPF); WBC Urine None Seen (0-5/HPF)
[2019-01-22 12:37] LABS: Appearance Urine UA CLEAR; Bilirubin Urine UA NEGATIVE (NEGATIVE); Color Urine UA YELLOW; Glucose Urine UA NEGATIVE (Negative); Ketones Urine UA NEGATIVE (NEGATIVE); Leukocyte Esterase Urine UA NEGATIVE (NEGATIVE); Nitrite Urine UA NEGATIVE (Negative); Occult Blood Urine UA NEGATIVE (Negative); Protein Urine UA NEGATIVE (Negative); Urobilinogen Urine UA 0.2 E.U./dL (0.2)
[2019-01-22 12:45] LABS: Culture Indicated Urine Cult Not Indicated; Urine Comments Microscopic Normal
== END ==
PROVIDERS: PCP Family Medicine; Visit Provider Family Medicine
DX: N30.00 Acute cystitis without hematuria (principal)
CPT/HCPCS: 81001

== ENCOUNTER → 2019-03-04 11:05 | Outpatient (CLI) | payer MEDICARE, OTHER, SELFPAY ==
--- NOTE | 2019-03-04 | DI.MRI.S_ITS ---
PROCEDURE: MR LOWER LEG LT WO/W CON INDICATIONS: Myalgia, unspecified site TECHNIQUE: Noncontrast coronal T1 spin echo and STIR, sagittal T1 spin echo with fat saturation and STIR, axial T1 spin echo and T2 fast spin echo with fat saturation. After the administration of contrast, axial/sagittal/coronal T1 spin echo with fat saturation through the left lower leg. COMPARISON: None. FINDINGS: Image quality: Diagnostic. Bones: No acute fracture, dislocation, or suspicious osseous lesion is identified involving the imaged osseous structures of the left lower leg. There is no suspicious osseous enhancement. Degenerative changes of the knee are not adequately characterized. Please note that evaluation of the left ankle is not adequate on this exam. There is a moderate size knee joint effusion with an associated Melgar's cyst. Soft tissues: No soft tissue masses or significant subcutaneous edema is evident involving imaged portions of the left lower leg. Nonspecific increased signal is evident along the aponeurosis of the gastrocnemius and soleus muscles. No significant fluid is identified within this region. Please note that the ligamentous, cartilaginous, and tendinous structures of the knee are not adequately characterized on this examination; however, there is diffuse increased signal of the anterior cruciate ligament and heterogeneity of the medial meniscus. Medial patellar plica is incidentally noted. There is no significant muscle atrophy or edema of the imaged muscles of the left lower leg. Nonspecific flattening involving the peroneus brevis tendon at the level of the lateral malleolus is evident, which is suggestive of tendinopathy. IMPRESSION: 1. No significant muscle abnormality is evident. There is no soft tissue mass no muscle edema, or muscle atrophy. 2. Minimal increased signal along the gastrocnemius/soleus aponeurosis could potentially be related to previous injury of the aponeurosis. 3. Probable tearing of the anterior cruciate ligament and medial meniscus. Please consider MRI of the knee for further evaluation. 4. Peroneus brevis tendinopathy is not well evaluated. 5. Moderate knee joint effusion with an associated Melgar's cyst. 6. No suspicious osseous enhancement or osseous lesion is present. Dictated by: Sean Zelaya M.D. on 03/04/2019 at 15:23 Approved by: Sean Zelaya M.D. on 03/04/2019 at 15:29
== END ==
PROVIDERS: PCP Family Medicine
DX: M79.10 Myalgia, unspecified site (principal); M25.462 Effusion, left knee; M71.22 Synovial cyst of popliteal space [Baker], left knee
CPT/HCPCS: 73720; A9579

== ENCOUNTER 2019-07-04 14:30 | Outpatient (RCR) | payer MEDICARE, OTHER, SELFPAY ==
--- NOTE | 2019-03-10 08:31 | PT.OIE ---
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) Past Medical History (Last Reviewed 10/26/18 @ 22:18 by MERLE Ames) Chronic lower limb pain (Chronic) History of torn meniscus of left knee (Acute) HTN (hypertension) (Chronic) Hyperlipidemia (Chronic) Pelvic floor dysfunction (Acute) Urethral pain (Chronic) Past Surgical History (Last Updated 10/26/18 @ 22:30 by MERLE Ames) History of cataract surgery (Acute) History of left knee surgery (Acute) No history of previous surgery (Chronic) Visit Care Team Role Provider Type Janis Varma MD Attending Provider Non-Staff Primary Care Provider Specialty: Medical Address: [address] [place] [address], [facility] Email: Physical Therapy Initial Evaluation PT-OP-A Visit Information Start: 03/04/19 13:14 Freq: Status: Active Protocol: Document 03/04/19 13:00 [facility] (Rec: 03/06/19 09:58 [facility] [email or web address]) Out-Patient Physical Therapy Visit Information Visit Information Visit Type Initial Evaluation Visit Note Patient requested evaluation only. She is a 68 year old female c/o night time urethral pain that started 3 years ago . This has progressed now to include Right greater than Left LE pain Visit Start Time 13:00 Visit Stop Time 13:45 Total Visit Minutes 45 Visit Number 1 Evaluation Information Evaluation Date 03/04/19 PT-OP-B Current Condition Start: 03/04/19 13:14 Freq: Status: Active Protocol: Document 03/04/19 13:00 [facility] (Rec: 03/10/19 08:19 [facility] [id number]) Current Condition History of Current Condition Onset Date 3 years ago Current Complaints pelvic pain History of Current Condition had some form of IC 3 years that brought her to a doctor. IT would feel like she had a bladder infection but didn't. Symptoms did get better but still had the urethral pain at night. When laying down she would have intense urethral pain. Saw a couple of PT's to help with this. Pain was high 7-8/10. Finally went to a urogynacologist at who could't find any thing causing pain so went to pain clinic. Started Lyrica and Dyloxotine. Then leg pain right greater than left, began after starting to take the mediations. Still has pain in the bladder/urethra but it is masked. When she gets up she has difficulty voiding. She is unable to go without the lyrica. Drinks approximately 3 glasses of water per day, 2 cups of coffee per day in the am. Bowel movements tries to be regular, takes magnesium. Has a bowel movement every other day. Shana has a past history of pelvic inflammatory disease when she was 33 and had laproscopic abdominal surgery at that time to try and open up her fallopian tubes Prior Treatments and Tests MRI taken 03/04/19 shows probable tearning of the anterior cruciate ligament and medial meniscus tear Current Functional Impairments (Reported) Functional Limitations- ADL's difficulty sleeping due to urethral pain unless medicating prior to bed Functional Limitations- Mobility/Gait pain reported with walking more than a block PT-OP-C Subjective Start: 03/04/19 13:14 Freq: Status: Active Protocol: Document 03/04/19 13:00 [facility] (Rec: 03/10/19 08:22 [facility] [id number]) Patient Questionnaires Pelvic Pain and Urgency/Frequency Patient Symptom Scale Pelvic Pain Score 8 OP-PT Pain Assessment Pain Assessment Grid Paper Pain Assessment Grid Completed Yes Location B LE Pain Location Details right greater than left LE pain Intensity 6 Scale Used Numeric (1 - 10) Description Radiating,Spasm Pain Aggravating Factors ADL's,Exercise,Walking Home Pain Medication Use Pain Medications Used Yes Home Pain Medication Frequency lyrica and duloxotine used daily for pain PT-OP-F Manual Assessment Start: 03/10/19 07:54 Freq: Status: Active Protocol: Document 03/04/19 13:00 [facility] (Rec: 03/10/19 08:18 [facility] [email or web address]) Manual Assessments Soft Tissue Assessment Soft Tissue Mobility Assessment hypomobile soft tissue and myofascial restrictions across the lower abdominal fascia and supra pubic region, poor bladder visceral mobility, adductor tightness right greater than left at the attachment to the pubic bone PT-OP-I Pelvic Floor Start: 03/10/19 07:54 Freq: Status: Active Protocol: Document 03/04/19 13:00 [facility] (Rec: 03/10/19 08:18 [facility] [email or web address]) Pelvic Floor Assessment Urine Pelvic Floor Surgery No: hx of fallopian tube laproscopic surgery Urinary Symptoms Hesitancy Other Urinary Symptoms urethral pain and burning at night, slow hesitant urinary stream Voiding Frequency 2.5 to 3 hours Nocturia no Comments Pelvic Floor Comments very limited fluid intake per day, 2 cups coffee and 3 glasses of water per day PT-OP-J Posture/Palpation/Skin Start: 03/10/19 07:54 Freq: Status: Active Protocol: Document 03/04/19 13:00 [facility] (Rec: 03/10/19 08:18 [facility] [email or web address]) Palpation Assessment Location Three Palpation Location right adductors and sartorius Two Palpation Location abdominal fascia over the large intestine Palpation Findings Soft Tissue Tightness Palpation Details decreased tissue mobility over the transverse colon One Palpation Location suprapubic region Palpation Findings Soft Tissue Tightness,Spasm, Muscle Guarding Palpation Details muscle guarding and spasm of the suprapubic region PT-OP-T Assessment and Plan Start: 03/10/19 07:54 Freq: Status: Active Protocol: Document 03/04/19 13:00 [facility] (Rec: 03/10/19 08:18 [facility] [email or web address]) Physical Therapy Assessment Rehab Potential Rehabilitation Potential Good Evaluation Complexity Number of Personal Factors/Comorbidities 0 Number of Body Systems Impaired 1-2 Clinical Presentation at Evaluation Stable Impairments Impairments Activity Tolerance,Edema, Functional Activities,Pain, Soft Tissue Mobility,Strength, Tone Goals Four Impairment LE pain rated 6/10 Shelter Goal (LTG) Shana is educated in knee stability exercises to help improve stabilization while she awaits further work up of her ACL instability on the right LE. Pain is reduced from 6/10 to 2-3/10 LTG Duration 8 weeks Three Impairment Tightness across the abdominal wall Short Term Goal (STG) Shana is instructed in stretches that help to decrease abdominal wall tightness and stretch at the bladder to decrease urethral pain STG Duration 4-6 weeks Two Impairment myofascial restrictions in the suprapubic region and over the bladder Shelter Goal (LTG) Improve fasical mobility of the bladder and urethra with manual therapy work LTG Duration 8 weeks One Impairment urethral pain at night if not taking her pain medications Shelter Goal (LTG) Shana has reduced c/o urethral pain at night and is no longer woken up with pain LTG Duration 8 weeks+ Assessment Summary Assessment Shana's examination was limited today as she wished to primarily discuss her complaints of urethral pain and muscle tightness to see if I though myofascial restrictions could be the cause of her pain. She has primary c/o night time urethral pain which she has seen numerous doctors and 2 PT 's for Per her report the only thing that has given her relief is her lyrica and duloxotine but she feels like these drugs are masking her pain. She has a newer onset of right greater than left leg pain. Per a MRI that was recently taken there is reported to be a probable tearing of the anterior cruciate ligament and medial meniscus on the right knee. She did consent to palpation over the abdominal wall, supra pubic fascia and LE. There is a great deal of myofascial tightness in the suprapubic region and it is difficult to mobilize the tissue around the bladder due to this tightness . This may cause urethral pain. She does report having a history of pelvic inflammatory disease and when she was 33 years old she underwent abdominal laproscopic surgery to try and open up her fallopian tubes. She reports still feeling scar tissue in this lower abdominal region. She is also very guarded in the abdominal region of the transverse colon. Her adductors and Sartorius on the right are very guarded but this is most likely due to right knee instability. I do often find adductor guarding with pelvic pain but her urethral pain is only happening at night. She has seen 2 women's health PT's and has had internal release done of the pelvic floor and this did not change her symptoms. She did not wish to have a internal examination today. I am happy to work on Myofasical restrictions in the abdominal wall, suprapubic region, and bladder visceral mobilizations to try and decrease c/o urethral pain. Per patient consent further examination will be done as well. Physical Therapy Plan Frequency and Duration Frequency of Treatment 2x/Week Duration of Treatment 8 weeks Plan of Care Start Date 03/04/19 Plan of Care End Date 05/02/19 Therapeutic Interventions Therapeutic Interventions Home Exercise Program,Manual Therapy,Neuromuscular Re- education,Patient/Caregiver Education,Self-Care/Home Management,Therapeutic Exercises Modalities Biofeedback,Electric Stimulation Other Therapeutic Interventions bladder irritants education Next Visit Focus/Plan Next Note Type Treatment Note Next Visit Plan Begin stretches for the anterior abdominal wall, manual therapy techniques to mobilize the bladder and suprapubic fascia
--- NOTE | 2019-03-11 14:35 | PT.OTN ---
Current Diagnoses Other chronic pain (03/11/19) Urethral syndrome, unspecified (03/11/19) Physical Therapy Treatment Note PT-OP-A Visit Information Start: 03/04/19 13:14 Freq: Status: Active Protocol: Document 03/11/19 14:30 [facility] (Rec: 03/11/19 14:34 [facility] [email or web address]) Out-Patient Physical Therapy Visit Information Visit Information Visit Type Treatment Note Visit Start Time 13:00 Visit Stop Time 13:45 Total Visit Minutes 45 Visit Number 2 PT-OP-B Current Condition Start: 03/04/19 13:14 Freq: Status: Active Protocol: Document 03/04/19 13:00 [facility] (Rec: 03/10/19 08:19 [facility] [email or web address]) Current Condition History of Current Condition Onset Date 3 years ago Current Complaints pelvic pain History of Current Condition had some form of IC 3 years that brought her to a doctor. IT would feel like she had a bladder infection but didn't. Symptoms did get better but still had the urethral pain at night. When laying down she would have intense urethral pain. Saw a couple of PT's to help with this. Pain was high 7-810. Finally went to a urogynacologist at who could't find any thing causing pain so went to pain clinic. Started Lyrica and Dyloxotine. Then leg pain right greater than left, began after starting to take the mediations. Still has pain in the bladder/urethra but it is masked. When she gets up she has difficulty voiding. She is unable to go without the lyrica. Drinks approximately 3 glasses of water per day, 2 cups of coffee per day in the am. Bowel movements tries to be regular, takes magnesium. Has a bowel movement every other day. Shana has a past history of pelvic inflammatory disease when she was 33 and had laproscopic abdominal surgery at that time to try and open up her fallopian tubes Prior Treatments and Tests MRI taken 03/04/19 shows probable tearning of the anterior cruciate ligament and medial meniscus tear Current Functional Impairments (Reported) Functional Limitations- ADL's difficulty sleeping due to urethral pain unless medicating prior to bed Functional Limitations- Mobility/Gait pain reported with walking more than a block PT-OP-C Subjective Start: 03/04/19 13:14 Freq: Status: Active Protocol: Document 03/11/19 14:30 [facility] (Rec: 03/11/19 14:34 [facility] [email or web address]) OP-PT Subjective Patient Comments Patient Comments pt reports she could feel her urethra a bit following the evaluation last visit. She notes that it is getting more difficult to void first thing in the am PT-OP-F Manual Assessment Start: 03/10/19 07:54 Freq: Status: Active Protocol: Document 03/04/19 13:00 [facility] (Rec: 03/10/19 08:18 [facility] [email or web address]) Manual Assessments Soft Tissue Assessment Soft Tissue Mobility Assessment hypomobile soft tissue and myofascial restrictions across the lower abdominal fascia and supra pubic region, poor bladder visceral mobility, adductor tightness right greater than left at the attachment to the pubic bone PT-OP-I Pelvic Floor Start: 03/10/19 07:54 Freq: Status: Active Protocol: Document 03/04/19 13:00 [facility] (Rec: 03/10/19 08:18 [facility] [email or web address]) Pelvic Floor Assessment Urine Pelvic Floor Surgery No: hx of fallopian tube laproscopic surgery Urinary Symptoms Hesitancy Other Urinary Symptoms urethral pain and burning at night, slow hesitant urinary stream Voiding Frequency 2.5 to 3 hours Nocturia no Comments Pelvic Floor Comments very limited fluid intake per day, 2 cups coffee and 3 glasses of water per day PT-OP-J Posture/Palpation/Skin Start: 03/10/19 07:54 Freq: Status: Active Protocol: Document 03/04/19 13:00 [facility] (Rec: 03/10/19 08:18 [facility] [email or web address]) Palpation Assessment Location Three Palpation Location right adductors and sartorius Two Palpation Location abdominal fascia over the large intestine Palpation Findings Soft Tissue Tightness Palpation Details decreased tissue mobility over the transverse colon One Palpation Location suprapubic region Palpation Findings Soft Tissue Tightness,Spasm, Muscle Guarding Palpation Details muscle guarding and spasm of the suprapubic region PT-OP-Q Treatments Start: 03/10/19 07:54 Freq: Status: Active Protocol: Document 03/11/19 14:34 [facility] (Rec: 03/11/19 14:35 [facility] [email or web address]) Manual Therapy Treatment Soft Tissue Mobilization 3 Body Location Adductor and quad release B Mobilization Type Myofascial Release 2 Body Location bladder visceral mobilizations Mobilization Type Myofascial Release Intensity/Depth Moderate Body Position Hooklying 1 Body Location suprapubic fascia Mobilization Type Myofascial Release Intensity/Depth Moderate Body Position Hooklying PT-OP-T Assessment and Plan Start: 03/10/19 07:54 Freq: Status: Active Protocol: Document 03/11/19 14:30 [facility] (Rec: 03/11/19 14:34 [facility] [email or web address]) Physical Therapy Assessment Assessment Summary Assessment good tolerance for MFR today, she tends to arch her back in supine and has difficulty relaxing her back. She is very guarded over the suprapubic fascia and has tightness in the fascia surrounding the bladder Physical Therapy Plan Frequency and Duration Frequency of Treatment 2x/Week Duration of Treatment 8 weeks Plan of Care Start Date 03/04/19 Plan of Care End Date 05/02/19 Therapeutic Interventions Therapeutic Interventions Home Exercise Program,Manual Therapy,Neuromuscular Re- education,Patient/Caregiver Education,Self-Care/Home Management,Therapeutic Exercises Modalities Biofeedback,Electric Stimulation Other Therapeutic Interventions bladder irritants education Next Visit Focus/Plan Next Note Type Treatment Note Next Visit Plan continue with myofascial release work and stretches for lumbar flexion
--- NOTE | 2019-03-14 16:57 | PT.OTN ---
Current Diagnoses Other chronic pain (03/14/19) Urethral syndrome, unspecified (03/14/19) Physical Therapy Treatment Note PT-OP-A Visit Information Start: 03/04/19 13:14 Freq: Status: Active Protocol: Document 03/14/19 14:29 [facility] (Rec: 03/14/19 14:36 [facility] [id number]) Out-Patient Physical Therapy Visit Information Visit Information Visit Type Treatment Note Visit Start Time 14:35 Visit Stop Time 15:15 Total Visit Minutes 40 Visit Number 3 PT-OP-B Current Condition Start: 03/04/19 13:14 Freq: Status: Active Protocol: Document 03/04/19 13:00 [facility] (Rec: 03/10/19 08:19 [facility] [email or web address]) Current Condition History of Current Condition Onset Date 3 years ago Current Complaints pelvic pain History of Current Condition had some form of IC 3 years that brought her to a doctor. IT would feel like she had a bladder infection but didn't. Symptoms did get better but still had the urethral pain at night. When laying down she would have intense urethral pain. Saw a couple of PT's to help with this. Pain was high 7-01/26. Finally went to a urogynacologist at who could't find any thing causing pain so went to pain clinic. Started Lyrica and Dyloxotine. Then leg pain right greater than left, began after starting to take the mediations. Still has pain in the bladder/urethra but it is masked. When she gets up she has difficulty voiding. She is unable to go without the lyrica. Drinks approximately 3 glasses of water per day, 2 cups of coffee per day in the am. Bowel movements tries to be regular, takes magnesium. Has a bowel movement every other day. Shana has a past history of pelvic inflammatory disease when she was 33 and had laproscopic abdominal surgery at that time to try and open up her fallopian tubes Prior Treatments and Tests MRI taken 03/04/19 shows probable tearning of the anterior cruciate ligament and medial meniscus tear Current Functional Impairments (Reported) Functional Limitations- ADL's difficulty sleeping due to urethral pain unless medicating prior to bed Functional Limitations- Mobility/Gait pain reported with walking more than a block PT-OP-C Subjective Start: 03/04/19 13:14 Freq: Status: Active Protocol: Document 03/14/19 14:29 [facility] (Rec: 03/14/19 14:36 [facility] [id number]) OP-PT Subjective Patient Comments Patient Comments reports she might have voided a little bit better after last visit PT-OP-F Manual Assessment Start: 03/10/19 07:54 Freq: Status: Active Protocol: Document 03/04/19 13:00 [facility] (Rec: 03/10/19 08:18 [facility] [email or web address]) Manual Assessments Soft Tissue Assessment Soft Tissue Mobility Assessment hypomobile soft tissue and myofascial restrictions across the lower abdominal fascia and supra pubic region, poor bladder visceral mobility, adductor tightness right greater than left at the attachment to the pubic bone PT-OP-I Pelvic Floor Start: 03/10/19 07:54 Freq: Status: Active Protocol: Document 03/04/19 13:00 [facility] (Rec: 03/10/19 08:18 [facility] [email or web address]) Pelvic Floor Assessment Urine Pelvic Floor Surgery No: hx of fallopian tube laproscopic surgery Urinary Symptoms Hesitancy Other Urinary Symptoms urethral pain and burning at night, slow hesitant urinary stream Voiding Frequency 2.5 to 3 hours Nocturia no Comments Pelvic Floor Comments very limited fluid intake per day, 2 cups coffee and 3 glasses of water per day PT-OP-J Posture/Palpation/Skin Start: 03/10/19 07:54 Freq: Status: Active Protocol: Document 03/04/19 13:00 [facility] (Rec: 03/10/19 08:18 [facility] [email or web address]) Palpation Assessment Location Three Palpation Location right adductors and sartorius Two Palpation Location abdominal fascia over the large intestine Palpation Findings Soft Tissue Tightness Palpation Details decreased tissue mobility over the transverse colon One Palpation Location suprapubic region Palpation Findings Soft Tissue Tightness,Spasm, Muscle Guarding Palpation Details muscle guarding and spasm of the suprapubic region PT-OP-Q Treatments Start: 03/10/19 07:54 Freq: Status: Active Protocol: Document 03/14/19 16:54 [facility] (Rec: 03/14/19 16:57 [facility] [email or web address]) Manual Therapy Treatment Soft Tissue Mobilization 3 Body Location Adductor and quad release B Mobilization Type Myofascial Release 2 Body Location bladder visceral mobilizations Mobilization Type Myofascial Release Intensity/Depth Moderate Body Position Hooklying 1 Body Location suprapubic fascia Mobilization Type Myofascial Release Intensity/Depth Moderate Body Position Hooklying PT-OP-T Assessment and Plan Start: 03/10/19 07:54 Freq: Status: Active Protocol: Document 03/14/19 16:54 [facility] (Rec: 03/14/19 16:57 [facility] [email or web address]) Physical Therapy Assessment Assessment Summary Assessment Shana had a biopsy this am on her breast to rule out breast cancer so I did not have her lay on her stomach to stretch. Manual therapy only was done today. I did start MFR over the colon with ILU massage. She had a good tolerance for treatment today Physical Therapy Plan Frequency and Duration Frequency of Treatment 2x/Week Duration of Treatment 8 weeks Plan of Care Start Date 03/04/19 Plan of Care End Date 05/02/19 Therapeutic Interventions Therapeutic Interventions Home Exercise Program,Manual Therapy,Neuromuscular Re- education,Patient/Caregiver Education,Self-Care/Home Management,Therapeutic Exercises Modalities Biofeedback,Electric Stimulation Other Therapeutic Interventions bladder irritants education Next Visit Focus/Plan Next Note Type Treatment Note Next Visit Plan begin stretches for lumbar flexion, work in quadruped on TA relaxation and facilitation
--- NOTE | 2019-03-21 11:15 | PT.OTN ---
Current Diagnoses Other chronic pain (03/26/19) Urethral syndrome, unspecified (03/26/19) Physical Therapy Treatment Note PT-OP-A Visit Information Start: 03/04/19 13:14 Freq: Status: Active Protocol: Document 03/26/19 11:15 [facility] (Rec: 03/27/19 09:55 [facility] [email or web address]) Out-Patient Physical Therapy Visit Information Visit Information Visit Type Treatment Note Visit Start Time 12:20 Visit Stop Time 13:05 Total Visit Minutes 45 Visit Number 5 PT-OP-B Current Condition Start: 03/04/19 13:14 Freq: Status: Active Protocol: Document 03/04/19 13:00 [facility] (Rec: 03/10/19 08:19 [facility] [email or web address]) Current Condition History of Current Condition Onset Date 3 years ago Current Complaints pelvic pain History of Current Condition had some form of IC 3 years that brought her to a doctor. IT would feel like she had a bladder infection but didn't. Symptoms did get better but still had the urethral pain at night. When laying down she would have intense urethral pain. Saw a couple of PT's to help with this. Pain was high 7-01/26. Finally went to a urogynacologist at who could't find any thing causing pain so went to pain clinic. Started Lyrica and Dyloxotine. Then leg pain right greater than left, began after starting to take the mediations. Still has pain in the bladder/urethra but it is masked. When she gets up she has difficulty voiding. She is unable to go without the lyrica. Drinks approximately 3 glasses of water per day, 2 cups of coffee per day in the am. Bowel movements tries to be regular, takes magnesium. Has a bowel movement every other day. Shana has a past history of pelvic inflammatory disease when she was 33 and had laproscopic abdominal surgery at that time to try and open up her fallopian tubes Prior Treatments and Tests MRI taken 03/04/19 shows probable tearning of the anterior cruciate ligament and medial meniscus tear Current Functional Impairments (Reported) Functional Limitations- ADL's difficulty sleeping due to urethral pain unless medicating prior to bed Functional Limitations- Mobility/Gait pain reported with walking more than a block PT-OP-C Subjective Start: 03/04/19 13:14 Freq: Status: Active Protocol: Document 03/26/19 11:15 [facility] (Rec: 03/27/19 09:55 [facility] [email or web address]) OP-PT Subjective Patient Comments Patient Comments Shana reports she has woken up with urethra irritation two times in the past week. She also has been diagnosed with stage 2 breast cancer so will be seeking treatment for that. She is trying to wear compression stockings but only calf ones. Leg pain is still present PT-OP-F Manual Assessment Start: 03/10/19 07:54 Freq: Status: Active Protocol: Document 03/04/19 13:00 [facility] (Rec: 03/10/19 08:18 [facility] [email or web address]) Manual Assessments Soft Tissue Assessment Soft Tissue Mobility Assessment hypomobile soft tissue and myofascial restrictions across the lower abdominal fascia and supra pubic region, poor bladder visceral mobility, adductor tightness right greater than left at the attachment to the pubic bone PT-OP-I Pelvic Floor Start: 03/10/19 07:54 Freq: Status: Active Protocol: Document 03/04/19 13:00 [facility] (Rec: 03/10/19 08:18 [facility] [email or web address]) Pelvic Floor Assessment Urine Pelvic Floor Surgery No: hx of fallopian tube laproscopic surgery Urinary Symptoms Hesitancy Other Urinary Symptoms urethral pain and burning at night, slow hesitant urinary stream Voiding Frequency 2.5 to 3 hours Nocturia no Comments Pelvic Floor Comments very limited fluid intake per day, 2 cups coffee and 3 glasses of water per day PT-OP-J Posture/Palpation/Skin Start: 03/10/19 07:54 Freq: Status: Active Protocol: Document 03/04/19 13:00 [facility] (Rec: 03/10/19 08:18 [facility] [email or web address]) Palpation Assessment Location Three Palpation Location right adductors and sartorius Two Palpation Location abdominal fascia over the large intestine Palpation Findings Soft Tissue Tightness Palpation Details decreased tissue mobility over the transverse colon One Palpation Location suprapubic region Palpation Findings Soft Tissue Tightness,Spasm, Muscle Guarding Palpation Details muscle guarding and spasm of the suprapubic region PT-OP-Q Treatments Start: 03/10/19 07:54 Freq: Status: Active Protocol: Document 03/26/19 11:15 [facility] (Rec: 03/27/19 09:55 [facility] [email or web address]) Manual Therapy Treatment Soft Tissue Mobilization 5 Body Location MFR of the levator ani musculature on the left Comments MFR of the left pubococcygeus and illiococcygeus 4 Body Location manual assessment of pelvic floor muscle tone Comments left sided muscle guarding of the illiococcygeus and pubococcygeus is present Neuro Re-Education Treatment Other Activities 2 Details hip ER with theraband for pelvic floor relaxation Comments Shana tolerated this well and could feel her pelvic floor relax with roll outs. HEP is 3 sets of 10 reps 1 Details EMG biofeedback with pelvic floor awareness Comments work on resting tone and recruitment of the pelvic floor. Resting tone began at 5 uv but was relaxed to 2 uv following pelvic floor 10 second long holds PT-OP-T Assessment and Plan Start: 03/10/19 07:54 Freq: Status: Active Protocol: Document 03/26/19 11:15 [facility] (Rec: 03/27/19 09:55 [facility] [email or web address]) Physical Therapy Assessment Assessment Summary Assessment We worked on pelvic floor release today as Shana had felt some urethral pain again at night. She is very tight and guarded in her pevlci floor. We reviewed all her pelvic floor stretches. She actually relaxed her pelvic floor more following contract relax exercises of the pelvic floor so she was given these for home as a home program. Physical Therapy Plan Frequency and Duration Frequency of Treatment 2x/Week Duration of Treatment 8 weeks Plan of Care Start Date 03/04/19 Plan of Care End Date 05/02/19 Therapeutic Interventions Therapeutic Interventions Home Exercise Program,Manual Therapy,Neuromuscular Re- education,Patient/Caregiver Education,Self-Care/Home Management,Therapeutic Exercises Modalities Biofeedback,Electric Stimulation Other Therapeutic Interventions bladder irritants education Next Visit Focus/Plan Next Note Type Treatment Note Next Visit Plan continue to address pelvic floor relaxed awarenss and urethral pain symptoms.
--- NOTE | 2019-04-18 13:00 | PT.OTN ---
Current Diagnoses Other chronic pain (04/18/19) Urethral syndrome, unspecified (04/18/19) Physical Therapy Treatment Note PT-OP-A Visit Information Start: 03/04/19 13:14 Freq: Status: Active Protocol: Document 04/18/19 13:00 [facility] (Rec: 04/22/19 09:29 [facility] [email or web address]) Out-Patient Physical Therapy Visit Information Visit Information Visit Type Treatment Note Visit Start Time 13:00 Visit Stop Time 13:45 Total Visit Minutes 45 Visit Number 6 PT-OP-B Current Condition Start: 03/04/19 13:14 Freq: Status: Active Protocol: Document 03/04/19 13:00 [facility] (Rec: 03/10/19 08:19 [facility] [email or web address]) Current Condition History of Current Condition Onset Date 3 years ago Current Complaints pelvic pain History of Current Condition had some form of IC 3 years that brought her to a doctor. IT would feel like she had a bladder infection but didn't. Symptoms did get better but still had the urethral pain at night. When laying down she would have intense urethral pain. Saw a couple of PT's to help with this. Pain was high 7-01/26. Finally went to a urogynacologist at who could't find any thing causing pain so went to pain clinic. Started Lyrica and Dyloxotine. Then leg pain right greater than left, began after starting to take the mediations. Still has pain in the bladder/urethra but it is masked. When she gets up she has difficulty voiding. She is unable to go without the lyrica. Drinks approximately 3 glasses of water per day, 2 cups of coffee per day in the am. Bowel movements tries to be regular, takes magnesium. Has a bowel movement every other day. Shana has a past history of pelvic inflammatory disease when she was 33 and had laproscopic abdominal surgery at that time to try and open up her fallopian tubes Prior Treatments and Tests MRI taken 03/04/19 shows probable tearning of the anterior cruciate ligament and medial meniscus tear Current Functional Impairments (Reported) Functional Limitations- ADL's difficulty sleeping due to urethral pain unless medicating prior to bed Functional Limitations- Mobility/Gait pain reported with walking more than a block PT-OP-C Subjective Start: 03/04/19 13:14 Freq: Status: Active Protocol: Document 04/18/19 13:00 [facility] (Rec: 04/22/19 09:29 [facility] [email or web address]) OP-PT Subjective Patient Comments Patient Comments pt reports she is awaiting biopsy results for breast cancer. She is still noting night time urethral irritation . She has been trying to work on her stretching program PT-OP-F Manual Assessment Start: 03/10/19 07:54 Freq: Status: Active Protocol: Document 03/04/19 13:00 [facility] (Rec: 03/10/19 08:18 [facility] [email or web address]) Manual Assessments Soft Tissue Assessment Soft Tissue Mobility Assessment hypomobile soft tissue and myofascial restrictions across the lower abdominal fascia and supra pubic region, poor bladder visceral mobility, adductor tightness right greater than left at the attachment to the pubic bone PT-OP-I Pelvic Floor Start: 03/10/19 07:54 Freq: Status: Active Protocol: Document 03/04/19 13:00 [facility] (Rec: 03/10/19 08:18 [facility] [email or web address]) Pelvic Floor Assessment Urine Pelvic Floor Surgery No: hx of fallopian tube laproscopic surgery Urinary Symptoms Hesitancy Other Urinary Symptoms urethral pain and burning at night, slow hesitant urinary stream Voiding Frequency 2.5 to 3 hours Nocturia no Comments Pelvic Floor Comments very limited fluid intake per day, 2 cups coffee and 3 glasses of water per day PT-OP-J Posture/Palpation/Skin Start: 03/10/19 07:54 Freq: Status: Active Protocol: Document 03/04/19 13:00 [facility] (Rec: 03/10/19 08:18 [facility] [email or web address]) Palpation Assessment Location Three Palpation Location right adductors and sartorius Two Palpation Location abdominal fascia over the large intestine Palpation Findings Soft Tissue Tightness Palpation Details decreased tissue mobility over the transverse colon One Palpation Location suprapubic region Palpation Findings Soft Tissue Tightness,Spasm, Muscle Guarding Palpation Details muscle guarding and spasm of the suprapubic region PT-OP-Q Treatments Start: 03/10/19 07:54 Freq: Status: Active Protocol: Document 04/18/19 13:00 [facility] (Rec: 04/22/19 09:29 [facility] [email or web address]) Manual Therapy Treatment Soft Tissue Mobilization 3 Body Location adductor muscle release 2 Body Location bladder visceral mobilizations Mobilization Type Myofascial Release Intensity/Depth Moderate Body Position Hooklying 1 Body Location suprapubic fascia Mobilization Type Myofascial Release Intensity/Depth Moderate Body Position Hooklying Neuro Re-Education Treatment Other Activities 1 Details EMG biofeedback with pelvic floor awareness Comments work on resting tone and recruitment of the pelvic floor. Resting tone began at 5 uv but was relaxed to 2 uv following pelvic floor 10 second long holds PT-OP-T Assessment and Plan Start: 03/10/19 07:54 Freq: Status: Active Protocol: Document 04/18/19 13:00 [facility] (Rec: 04/22/19 09:29 [facility] [email or web address]) Physical Therapy Assessment Assessment Summary Assessment with EMG biofeedback today the pelvic floor was very guarded and Shana had difficulty relaxing at all. We talked about how she may be holding increased stress in her pelvic floor due to her cancer diagnosis. It is difficult to relax her pelvic floor at this time. She does have further appointments scheduled for April but will let us know her plan with her upcoming treatments for breast cancer Physical Therapy Plan Frequency and Duration Frequency of Treatment 2x/Week Duration of Treatment 8 weeks Plan of Care Start Date 03/04/19 Plan of Care End Date 05/02/19 Therapeutic Interventions Therapeutic Interventions Home Exercise Program,Manual Therapy,Neuromuscular Re- education,Patient/Caregiver Education,Self-Care/Home Management,Therapeutic Exercises Modalities Biofeedback,Electric Stimulation Other Therapeutic Interventions bladder irritants education Next Visit Focus/Plan Next Note Type Treatment Note Next Visit Plan continue to address pelvic floor relaxed awarenss and urethral pain symptoms.
--- NOTE | 2019-05-07 17:42 | PT.OTN ---
Current Diagnoses Other chronic pain (05/21/19) Urethral syndrome, unspecified (05/21/19) Physical Therapy Treatment Note PT-OP-A Visit Information Start: 03/04/19 13:14 Freq: Status: Active Protocol: Document 05/07/19 13:00 [facility] (Rec: 05/21/19 17:42 [facility] [email or web address]) Out-Patient Physical Therapy Visit Information Visit Information Visit Type Treatment Note Visit Start Time 13:00 Visit Stop Time 13:45 Total Visit Minutes 45 Visit Number 7 PT-OP-B Current Condition Start: 03/04/19 13:14 Freq: Status: Active Protocol: Document 03/04/19 13:00 [facility] (Rec: 03/10/19 08:19 [facility] [email or web address]) Current Condition History of Current Condition Onset Date 3 years ago Current Complaints pelvic pain History of Current Condition had some form of IC 3 years that brought her to a doctor. IT would feel like she had a bladder infection but didn't. Symptoms did get better but still had the urethral pain at night. When laying down she would have intense urethral pain. Saw a couple of PT's to help with this. Pain was high 7-01/26. Finally went to a urogynacologist at who could't find any thing causing pain so went to pain clinic. Started Lyrica and Dyloxotine. Then leg pain right greater than left, began after starting to take the mediations. Still has pain in the bladder/urethra but it is masked. When she gets up she has difficulty voiding. She is unable to go without the lyrica. Drinks approximately 3 glasses of water per day, 2 cups of coffee per day in the am. Bowel movements tries to be regular, takes magnesium. Has a bowel movement every other day. Shana has a past history of pelvic inflammatory disease when she was 33 and had laproscopic abdominal surgery at that time to try and open up her fallopian tubes Prior Treatments and Tests MRI taken 03/04/19 shows probable tearning of the anterior cruciate ligament and medial meniscus tear Current Functional Impairments (Reported) Functional Limitations- ADL's difficulty sleeping due to urethral pain unless medicating prior to bed Functional Limitations- Mobility/Gait pain reported with walking more than a block PT-OP-C Subjective Start: 03/04/19 13:14 Freq: Status: Active Protocol: Document 05/07/19 13:00 [facility] (Rec: 05/21/19 17:42 [facility] [email or web address]) OP-PT Subjective Patient Comments Patient Comments had surgery and is now awaiting pathology report. She also felt a UTI and needed antibiotics PT-OP-F Manual Assessment Start: 03/10/19 07:54 Freq: Status: Active Protocol: Document 03/04/19 13:00 [facility] (Rec: 03/10/19 08:18 [facility] [email or web address]) Manual Assessments Soft Tissue Assessment Soft Tissue Mobility Assessment hypomobile soft tissue and myofascial restrictions across the lower abdominal fascia and supra pubic region, poor bladder visceral mobility, adductor tightness right greater than left at the attachment to the pubic bone PT-OP-I Pelvic Floor Start: 03/10/19 07:54 Freq: Status: Active Protocol: Document 03/04/19 13:00 [facility] (Rec: 03/10/19 08:18 [facility] [email or web address]) Pelvic Floor Assessment Urine Pelvic Floor Surgery No: hx of fallopian tube laproscopic surgery Urinary Symptoms Hesitancy Other Urinary Symptoms urethral pain and burning at night, slow hesitant urinary stream Voiding Frequency 2.5 to 3 hours Nocturia no Comments Pelvic Floor Comments very limited fluid intake per day, 2 cups coffee and 3 glasses of water per day PT-OP-J Posture/Palpation/Skin Start: 03/10/19 07:54 Freq: Status: Active Protocol: Document 03/04/19 13:00 [facility] (Rec: 03/10/19 08:18 [facility] [email or web address]) Palpation Assessment Location Three Palpation Location right adductors and sartorius Two Palpation Location abdominal fascia over the large intestine Palpation Findings Soft Tissue Tightness Palpation Details decreased tissue mobility over the transverse colon One Palpation Location suprapubic region Palpation Findings Soft Tissue Tightness,Spasm, Muscle Guarding Palpation Details muscle guarding and spasm of the suprapubic region PT-OP-Q Treatments Start: 03/10/19 07:54 Freq: Status: Active Protocol: Document 05/07/19 13:00 [facility] (Rec: 05/21/19 17:42 [facility] [email or web address]) Manual Therapy Treatment Soft Tissue Mobilization 5 Body Location MFR of the levator ani musculature on the left Comments MFR of the left pubococcygeus and illiococcygeus 4 Body Location manual assessment of pelvic floor muscle tone Comments left sided muscle guarding of the illiococcygeus and pubococcygeus is present 2 Body Location bladder visceral mobilizations Mobilization Type Myofascial Release Intensity/Depth Moderate Body Position Hooklying 1 Body Location suprapubic fascia Mobilization Type Myofascial Release Intensity/Depth Moderate Body Position Hooklying PT-OP-T Assessment and Plan Start: 03/10/19 07:54 Freq: Status: Active Protocol: Document 05/07/19 13:00 [facility] (Rec: 05/21/19 17:42 [facility] [email or web address]) Physical Therapy Assessment Assessment Summary Assessment still guarded, responded well to treatment. Talked to Shana about using castor oil packs to help stimulate daily bowel movements as this may help her bladder Physical Therapy Plan Next Visit Focus/Plan Next Note Type Treatment Note Next Visit Plan continue to address pelvic floor relaxed awarenss and urethral pain symptoms.
--- NOTE | 2019-05-21 18:00 | PT.OTN ---
Current Diagnoses Other chronic pain (05/21/19) Urethral syndrome, unspecified (05/21/19) Physical Therapy Treatment Note PT-OP-A Visit Information Start: 03/04/19 13:14 Freq: Status: Active Protocol: Document 05/21/19 17:45 [facility] (Rec: 05/21/19 18:00 [facility] [email or web address]) Out-Patient Physical Therapy Visit Information Visit Information Visit Type Treatment Note Visit Start Time 13:00 Visit Stop Time 13:45 Total Visit Minutes 45 Visit Number 8 PT-OP-B Current Condition Start: 03/04/19 13:14 Freq: Status: Active Protocol: Document 03/04/19 13:00 [facility] (Rec: 03/10/19 08:19 [facility] [email or web address]) Current Condition History of Current Condition Onset Date 3 years ago Current Complaints pelvic pain History of Current Condition had some form of IC 3 years that brought her to a doctor. IT would feel like she had a bladder infection but didn't. Symptoms did get better but still had the urethral pain at night. When laying down she would have intense urethral pain. Saw a couple of PT's to help with this. Pain was high 7-810. Finally went to a urogynacologist at who could't find any thing causing pain so went to pain clinic. Started Lyrica and Dyloxotine. Then leg pain right greater than left, began after starting to take the mediations. Still has pain in the bladder/urethra but it is masked. When she gets up she has difficulty voiding. She is unable to go without the lyrica. Drinks approximately 3 glasses of water per day, 2 cups of coffee per day in the am. Bowel movements tries to be regular, takes magnesium. Has a bowel movement every other day. Shana has a past history of pelvic inflammatory disease when she was 33 and had laproscopic abdominal surgery at that time to try and open up her fallopian tubes Prior Treatments and Tests MRI taken 03/04/19 shows probable tearning of the anterior cruciate ligament and medial meniscus tear Current Functional Impairments (Reported) Functional Limitations- ADL's difficulty sleeping due to urethral pain unless medicating prior to bed Functional Limitations- Mobility/Gait pain reported with walking more than a block PT-OP-C Subjective Start: 03/04/19 13:14 Freq: Status: Active Protocol: Document 05/21/19 17:45 [facility] (Rec: 05/21/19 18:00 [facility] [email or web address]) OP-PT Subjective Patient Comments Patient Comments pt is awaiting radiation to start. She has been working on cutting back the lyrica. She also feels that the castor oil packs have been working to stimulate her bowel movements PT-OP-F Manual Assessment Start: 03/10/19 07:54 Freq: Status: Active Protocol: Document 03/04/19 13:00 [facility] (Rec: 03/10/19 08:18 [facility] [email or web address]) Manual Assessments Soft Tissue Assessment Soft Tissue Mobility Assessment hypomobile soft tissue and myofascial restrictions across the lower abdominal fascia and supra pubic region, poor bladder visceral mobility, adductor tightness right greater than left at the attachment to the pubic bone PT-OP-I Pelvic Floor Start: 03/10/19 07:54 Freq: Status: Active Protocol: Document 03/04/19 13:00 [facility] (Rec: 03/10/19 08:18 [facility] [email or web address]) Pelvic Floor Assessment Urine Pelvic Floor Surgery No: hx of fallopian tube laproscopic surgery Urinary Symptoms Hesitancy Other Urinary Symptoms urethral pain and burning at night, slow hesitant urinary stream Voiding Frequency 2.5 to 3 hours Nocturia no Comments Pelvic Floor Comments very limited fluid intake per day, 2 cups coffee and 3 glasses of water per day PT-OP-J Posture/Palpation/Skin Start: 03/10/19 07:54 Freq: Status: Active Protocol: Document 03/04/19 13:00 [facility] (Rec: 03/10/19 08:18 [facility] [email or web address]) Palpation Assessment Location Three Palpation Location right adductors and sartorius Two Palpation Location abdominal fascia over the large intestine Palpation Findings Soft Tissue Tightness Palpation Details decreased tissue mobility over the transverse colon One Palpation Location suprapubic region Palpation Findings Soft Tissue Tightness,Spasm, Muscle Guarding Palpation Details muscle guarding and spasm of the suprapubic region PT-OP-Q Treatments Start: 03/10/19 07:54 Freq: Status: Active Protocol: Document 05/21/19 17:45 [facility] (Rec: 05/21/19 18:00 [facility] [email or web address]) Manual Therapy Treatment Soft Tissue Mobilization 5 Body Location MFR of the levator ani musculature on the left Comments MFR of bilateral pubococcygeus and illiococcygeus. Worked on contract/relax of the pelvic floor as it is difficult for lateral crenshaw to contract. Pt tends to use her gluteals for pelvic floor contraction 2 Body Location bladder visceral mobilizations Mobilization Type Myofascial Release Intensity/Depth Moderate Body Position Hooklying 1 Body Location suprapubic fascia Mobilization Type Myofascial Release Intensity/Depth Moderate Body Position Hooklying PT-OP-T Assessment and Plan Start: 03/10/19 07:54 Freq: Status: Active Protocol: Document 05/21/19 17:45 [facility] (Rec: 05/21/19 18:00 [facility] [email or web address]) Physical Therapy Assessment Goals Four Impairment LE pain rated 6/10 Car Framer Goal (LTG) Shana is educated in knee stability exercises to help improve stabilization while she awaits further work up of her ACL instability on the right LE. Pain is reduced from 6/10 to 2-3/10 SLOW PROGRESS LTG Duration 8 weeks Three Impairment Tightness across the abdominal wall Short Term Goal (STG) Shana is instructed in stretches that help to decrease abdominal wall tightness and stretch at the bladder to decrease urethral pain GOAL MET STG Duration 4-6 weeks Two Impairment myofascial restrictions in the suprapubic region and over the bladder Prison Goal (LTG) Improve fasical mobility of the bladder and urethra with manual therapy work SOME PROGRESS LTG Duration 8 weeks One Impairment urethral pain at night if not taking her pain medications Car Framer Goal (LTG) Shana has reduced c/o urethral pain at night and is no longer woken up with pain No Change LTG Duration 8 weeks+ Assessment Summary Assessment Shana has been seen for PT for pelvic pain and tightness. During this course of treatment she has undergone surgery for breast cancer. She is currently awaiting radiation to start. These events have contributed some to difficulty with full pelvic floor relaxation. Today Shana demonstrated improved abdominal fascial mobilitity and has felt like her voding is improved. She is still feeling very tight in her LE and in her pelvic floor. We have been working on contract relax of the pelvic floor and pt is working on pelvic stretches at home. She would benefit from continued PT Physical Therapy Plan Frequency and Duration Frequency of Treatment 2x/Week Duration of Treatment 8 weeks Plan of Care Start Date 05/02/19 Plan of Care End Date 07/02/19 Therapeutic Interventions Therapeutic Interventions Home Exercise Program,Manual Therapy,Neuromuscular Re- education,Patient/Caregiver Education,Self-Care/Home Management,Therapeutic Exercises Modalities Biofeedback,Electric Stimulation Other Therapeutic Interventions bladder irritants education Next Visit Focus/Plan Next Note Type Treatment Note Next Visit Plan continue to address pelvic floor relaxed awarenss and urethral pain symptoms.
--- NOTE | 2019-05-28 13:20 | PT.OTN ---
Current Diagnoses Other chronic pain (05/28/19) Urethral syndrome, unspecified (05/28/19) Physical Therapy Treatment Note PT-OP-A Visit Information Start: 03/04/19 13:14 Freq: Status: Active Protocol: Document 05/28/19 13:00 [facility] (Rec: 05/29/19 13:20 [facility] [id number]) Out-Patient Physical Therapy Visit Information Visit Information Visit Type Treatment Note Visit Start Time 13:00 Visit Stop Time 13:45 Total Visit Minutes 45 Visit Number 9 Evaluation Information Evaluation Date 03/04/19 PT-OP-B Current Condition Start: 03/04/19 13:14 Freq: Status: Active Protocol: Document 03/04/19 13:00 [facility] (Rec: 03/10/19 08:19 [facility] [id number]) Current Condition History of Current Condition Onset Date 3 years ago Current Complaints pelvic pain History of Current Condition had some form of IC 3 years that brought her to a doctor. IT would feel like she had a bladder infection but didn't. Symptoms did get better but still had the urethral pain at night. When laying down she would have intense urethral pain. Saw a couple of PT's to help with this. Pain was high 7-8/10. Finally went to a urogynacologist at who could't find any thing causing pain so went to pain clinic. Started Lyrica and Dyloxotine. Then leg pain right greater than left, began after starting to take the mediations. Still has pain in the bladder/urethra but it is masked. When she gets up she has difficulty voiding. She is unable to go without the lyrica. Drinks approximately 3 glasses of water per day, 2 cups of coffee per day in the am. Bowel movements tries to be regular, takes magnesium. Has a bowel movement every other day. Shana has a past history of pelvic inflammatory disease when she was 33 and had laproscopic abdominal surgery at that time to try and open up her fallopian tubes Prior Treatments and Tests MRI taken 03/04/19 shows probable tearning of the anterior cruciate ligament and medial meniscus tear Current Functional Impairments (Reported) Functional Limitations- ADL's difficulty sleeping due to urethral pain unless medicating prior to bed Functional Limitations- Mobility/Gait pain reported with walking more than a block PT-OP-C Subjective Start: 03/04/19 13:14 Freq: Status: Active Protocol: Document 05/28/19 13:00 [facility] (Rec: 05/29/19 13:20 [facility] [id number]) OP-PT Subjective Patient Comments Patient Comments pt reports she was in [place] and had a coffee drink before bed. Woke up with urethral pain more severe She mentions that if she voids right before bed she will often wake up in pain PT-OP-F Manual Assessment Start: 03/10/19 07:54 Freq: Status: Active Protocol: Document 03/04/19 13:00 [facility] (Rec: 03/10/19 08:18 [facility] [email or web address]) Manual Assessments Soft Tissue Assessment Soft Tissue Mobility Assessment hypomobile soft tissue and myofascial restrictions across the lower abdominal fascia and supra pubic region, poor bladder visceral mobility, adductor tightness right greater than left at the attachment to the pubic bone PT-OP-I Pelvic Floor Start: 03/10/19 07:54 Freq: Status: Active Protocol: Document 03/04/19 13:00 [facility] (Rec: 03/10/19 08:18 [facility] [email or web address]) Pelvic Floor Assessment Urine Pelvic Floor Surgery No: hx of fallopian tube laproscopic surgery Urinary Symptoms Hesitancy Other Urinary Symptoms urethral pain and burning at night, slow hesitant urinary stream Voiding Frequency 2.5 to 3 hours Nocturia no Comments Pelvic Floor Comments very limited fluid intake per day, 2 cups coffee and 3 glasses of water per day PT-OP-J Posture/Palpation/Skin Start: 03/10/19 07:54 Freq: Status: Active Protocol: Document 03/04/19 13:00 [facility] (Rec: 03/10/19 08:18 [facility] [email or web address]) Palpation Assessment Location Three Palpation Location right adductors and sartorius Two Palpation Location abdominal fascia over the large intestine Palpation Findings Soft Tissue Tightness Palpation Details decreased tissue mobility over the transverse colon One Palpation Location suprapubic region Palpation Findings Soft Tissue Tightness,Spasm, Muscle Guarding Palpation Details muscle guarding and spasm of the suprapubic region PT-OP-Q Treatments Start: 03/10/19 07:54 Freq: Status: Active Protocol: Document 05/28/19 13:00 [facility] (Rec: 05/29/19 13:20 [facility] [id number]) Therapeutic Exercises Other Exercises diaphragmatic breathing Other Exercise Name diaphragmatic breathing quadraped thoracic rotation Other Exercise Name thoracic rotation Reps/Minutes x 5 reps per side cat cow Other Exercise Name quadruped cat cow and lateral trunk stretch cobra stretch Other Exercise Name cobra stretch Reps/Minutes 30 sec ond holds x 2-3 reps Manual Therapy Treatment Soft Tissue Mobilization 2 Body Location bladder visceral mobilizations Mobilization Type Myofascial Release Intensity/Depth Moderate Body Position Hooklying 1 Body Location suprapubic fascia Mobilization Type Myofascial Release Intensity/Depth Moderate Body Position Hooklying Neuro Re-Education Treatment Other Activities 2 Details hip ER with theraband for pelvic floor relaxation Comments Shana tolerated this well and could feel her pelvic floor relax with roll outs. HEP is 3 sets of 10 reps 1 Details EMG biofeedback with pelvic floor awareness Comments work on resting tone and recruitment of the pelvic floor. Resting tone dropped with diaphragmatic breathing and the pelvic breath more so than with contract relax PT-OP-T Assessment and Plan Start: 03/10/19 07:54 Freq: Status: Active Protocol: Document 05/28/19 13:00 [facility] (Rec: 05/29/19 13:20 [facility] [id number]) Physical Therapy Assessment Assessment Summary Assessment The pelvic breath worked well today for Shana at relaxing her pelvic floor. I talked to her about doing her stretches before bed and the possibility of urine getting stuck in her urethra if she is tight. Gave ideas of sitting stretches to do once she is done voiding Physical Therapy Plan Frequency and Duration Frequency of Treatment 2x/Week Duration of Treatment 8 weeks Plan of Care Start Date 05/02/19 Plan of Care End Date 07/02/19 Therapeutic Interventions Therapeutic Interventions Home Exercise Program,Manual Therapy,Neuromuscular Re- education,Patient/Caregiver Education,Self-Care/Home Management,Therapeutic Exercises Modalities Biofeedback,Electric Stimulation Other Therapeutic Interventions bladder irritants education Next Visit Focus/Plan Next Note Type Treatment Note Next Visit Plan continue to address pelvic floor relaxed awarenss and urethral pain symptoms.
--- NOTE | 2019-06-30 15:26 | PT.OTN ---
Current Diagnoses Other chronic pain (06/27/19) Urethral syndrome, unspecified (06/27/19) Physical Therapy Treatment Note PT-OP-A Visit Information Start: 03/04/19 13:14 Freq: Status: Active Protocol: Document 06/27/19 11:25 [facility] (Rec: 06/30/19 15:26 [facility] [email or web address]) Out-Patient Physical Therapy Visit Information Visit Information Visit Type Treatment Note Visit Start Time 11:25 Visit Stop Time 12:00 Total Visit Minutes 35 Visit Number 10 PT-OP-B Current Condition Start: 03/04/19 13:14 Freq: Status: Active Protocol: Document 03/04/19 13:00 [facility] (Rec: 03/10/19 08:19 [facility] [email or web address]) Current Condition History of Current Condition Onset Date 3 years ago Current Complaints pelvic pain History of Current Condition had some form of IC 3 years that brought her to a doctor. IT would feel like she had a bladder infection but didn't. Symptoms did get better but still had the urethral pain at night. When laying down she would have intense urethral pain. Saw a couple of PT's to help with this. Pain was high 7-01/26. Finally went to a urogynacologist at who could't find any thing causing pain so went to pain clinic. Started Lyrica and Dyloxotine. Then leg pain right greater than left, began after starting to take the mediations. Still has pain in the bladder/urethra but it is masked. When she gets up she has difficulty voiding. She is unable to go without the lyrica. Drinks approximately 3 glasses of water per day, 2 cups of coffee per day in the am. Bowel movements tries to be regular, takes magnesium. Has a bowel movement every other day. Shana has a past history of pelvic inflammatory disease when she was 33 and had laproscopic abdominal surgery at that time to try and open up her fallopian tubes Prior Treatments and Tests MRI taken 03/04/19 shows probable tearning of the anterior cruciate ligament and medial meniscus tear Current Functional Impairments (Reported) Functional Limitations- ADL's difficulty sleeping due to urethral pain unless medicating prior to bed Functional Limitations- Mobility/Gait pain reported with walking more than a block PT-OP-C Subjective Start: 03/04/19 13:14 Freq: Status: Active Protocol: Document 06/27/19 11:25 [facility] (Rec: 06/30/19 15:26 [facility] [email or web address]) OP-PT Subjective Patient Comments Patient Comments pt reports she is undergoing a EMG nerve test to see if any of her leg and bladder pain is stemmming from her low back. She is also a week into her radiation therapy for her breast PT-OP-F Manual Assessment Start: 03/10/19 07:54 Freq: Status: Active Protocol: Document 03/04/19 13:00 [facility] (Rec: 03/10/19 08:18 [facility] [email or web address]) Manual Assessments Soft Tissue Assessment Soft Tissue Mobility Assessment hypomobile soft tissue and myofascial restrictions across the lower abdominal fascia and supra pubic region, poor bladder visceral mobility, adductor tightness right greater than left at the attachment to the pubic bone PT-OP-I Pelvic Floor Start: 03/10/19 07:54 Freq: Status: Active Protocol: Document 03/04/19 13:00 [facility] (Rec: 03/10/19 08:18 [facility] [id number]) Pelvic Floor Assessment Urine Pelvic Floor Surgery No: hx of fallopian tube laproscopic surgery Urinary Symptoms Hesitancy Other Urinary Symptoms urethral pain and burning at night, slow hesitant urinary stream Voiding Frequency 2.5 to 3 hours Nocturia no Comments Pelvic Floor Comments very limited fluid intake per day, 2 cups coffee and 3 glasses of water per day PT-OP-J Posture/Palpation/Skin Start: 03/10/19 07:54 Freq: Status: Active Protocol: Document 03/04/19 13:00 [facility] (Rec: 03/10/19 08:18 [facility] [email or web address]) Palpation Assessment Location Three Palpation Location right adductors and sartorius Two Palpation Location abdominal fascia over the large intestine Palpation Findings Soft Tissue Tightness Palpation Details decreased tissue mobility over the transverse colon One Palpation Location suprapubic region Palpation Findings Soft Tissue Tightness,Spasm, Muscle Guarding Palpation Details muscle guarding and spasm of the suprapubic region PT-OP-Q Treatments Start: 03/10/19 07:54 Freq: Status: Active Protocol: Document 06/27/19 11:25 [facility] (Rec: 06/30/19 15:26 [facility] [id number]) Manual Therapy Treatment Soft Tissue Mobilization 3 Body Location MFR to the lumbar spinal musculature and sacral region, piriformis and glut Comments worked on sacral region, low back, gluteals.to see if this helped leg pain at all. PT-OP-T Assessment and Plan Start: 03/10/19 07:54 Freq: Status: Active Protocol: Document 06/27/19 11:25 [facility] (Rec: 06/30/19 15:26 [facility] [email or web address]) Physical Therapy Assessment Assessment Summary Assessment Will see Shana next week following her needle EMG testing Physical Therapy Plan Next Visit Focus/Plan Next Note Type Treatment Note Next Visit Plan return to relaxed awarness of the pelvic floor and LE muscles
--- NOTE | 2019-07-08 17:48 | PT.OTN ---
Current Diagnoses Other chronic pain (07/04/19) Urethral syndrome, unspecified (07/04/19) Physical Therapy Treatment Note PT-OP-A Visit Information Start: 03/04/19 13:14 Freq: Status: Active Protocol: Document 07/04/19 14:45 [facility] (Rec: 07/08/19 17:46 [facility] [email or web address]) Out-Patient Physical Therapy Visit Information Visit Information Visit Type Treatment Note Visit Note pt wished to discuss symptoms today and not do full treatment Visit Start Time 14:45 Visit Stop Time 15:05 Total Visit Minutes 20 Visit Number 11 PT-OP-B Current Condition Start: 03/04/19 13:14 Freq: Status: Active Protocol: Document 03/04/19 13:00 [facility] (Rec: 03/10/19 08:19 [facility] [email or web address]) Current Condition History of Current Condition Onset Date 3 years ago Current Complaints pelvic pain History of Current Condition had some form of IC 3 years that brought her to a doctor. IT would feel like she had a bladder infection but didn't. Symptoms did get better but still had the urethral pain at night. When laying down she would have intense urethral pain. Saw a couple of PT's to help with this. Pain was high 7-8/10. Finally went to a urogynacologist at who could't find any thing causing pain so went to pain clinic. Started Lyrica and Dyloxotine. Then leg pain right greater than left, began after starting to take the mediations. Still has pain in the bladder/urethra but it is masked. When she gets up she has difficulty voiding. She is unable to go without the lyrica. Drinks approximately 3 glasses of water per day, 2 cups of coffee per day in the am. Bowel movements tries to be regular, takes magnesium. Has a bowel movement every other day. Shana has a past history of pelvic inflammatory disease when she was 33 and had laproscopic abdominal surgery at that time to try and open up her fallopian tubes Prior Treatments and Tests MRI taken 03/04/19 shows probable tearning of the anterior cruciate ligament and medial meniscus tear Current Functional Impairments (Reported) Functional Limitations- ADL's difficulty sleeping due to urethral pain unless medicating prior to bed Functional Limitations- Mobility/Gait pain reported with walking more than a block PT-OP-C Subjective Start: 03/04/19 13:14 Freq: Status: Active Protocol: Document 07/04/19 14:45 [facility] (Rec: 07/08/19 17:46 [facility] [email or web address]) OP-PT Subjective Patient Comments Patient Comments pt reports her nerve conduction test was normal. She wants to see a PT that specializes in perpherial nerves and see if it helps her nerve pain. Shana wishes to hold off on any further treatment at this time as she is still expereincing the leg pain and night time bladder symptoms PT-OP-F Manual Assessment Start: 03/10/19 07:54 Freq: Status: Active Protocol: Document 03/04/19 13:00 AM[facility] (Rec: 03/10/19 08:18 [facility] [email or web address]) Manual Assessments Soft Tissue Assessment Soft Tissue Mobility Assessment hypomobile soft tissue and myofascial restrictions across the lower abdominal fascia and supra pubic region, poor bladder visceral mobility, adductor tightness right greater than left at the attachment to the pubic bone PT-OP-I Pelvic Floor Start: 03/10/19 07:54 Freq: Status: Active Protocol: Document 03/04/19 13:00 AM[facility] (Rec: 03/10/19 08:18 AM[facility] [email or web address]) Pelvic Floor Assessment Urine Pelvic Floor Surgery No: hx of fallopian tube laproscopic surgery Urinary Symptoms Hesitancy Other Urinary Symptoms urethral pain and burning at night, slow hesitant urinary stream Voiding Frequency 2.5 to 3 hours Nocturia no Comments Pelvic Floor Comments very limited fluid intake per day, 2 cups coffee and 3 glasses of water per day PT-OP-J Posture/Palpation/Skin Start: 03/10/19 07:54 Freq: Status: Active Protocol: Document 03/04/19 13:00 AM[facility] (Rec: 03/10/19 08:18 AM[facility] [email or web address]) Palpation Assessment Location Three Palpation Location right adductors and sartorius Two Palpation Location abdominal fascia over the large intestine Palpation Findings Soft Tissue Tightness Palpation Details decreased tissue mobility over the transverse colon One Palpation Location suprapubic region Palpation Findings Soft Tissue Tightness,Spasm, Muscle Guarding Palpation Details muscle guarding and spasm of the suprapubic region PT-OP-Q Treatments Start: 03/10/19 07:54 Freq: Status: Active Protocol: Document 07/04/19 14:45 AM[facility] (Rec: 07/08/19 17:46 AM[facility] [email or web address]) Self-Care/Home Management Treatment Education Patient Education Home Exercise Program Caregiver Education Review of ILU self abdominal massage for improved colon mobility and to promote daily bowel movements, review of home stretches and pelvic floor exercises PT-OP-T Assessment and Plan Start: 03/10/19 07:54 Freq: Status: Active Protocol: Document 07/04/19 14:45 AM[facility] (Rec: 07/08/19 17:48 AM[facility] [email or web address]) Physical Therapy Assessment Assessment Summary Assessment Shana has been seen for 11 visits in PT. We have been working on her complaints of night time urethral pain and LE pain syndrome. Despite efforts she is still experiecing pain. We discussed her home program, stretches, pelvic floor exercises, and self abdominal massage today for her to continue independently. A full PT visit was not done today. She will be discharged from PT at this time. Physical Therapy Plan Discharge Physical Therapy Discharge Reasons Patient Request Discharge Comments Pt will DC PT at this time as she is still experiencing her bladder pain symptoms and LE pain symptoms
== END 2019-07-11 13:15 ==
LOC: PHYS 14:30
PROVIDERS: PCP Family Medicine; Visit Provider Family Medicine
DX: N34.3 Urethral syndrome, unspecified (principal); G89.29 Other chronic pain
CPT/HCPCS: 97110; 97112; 97140; 97161; 97535

== ENCOUNTER → 2019-07-11 10:55 | Outpatient (CLI) | payer MEDICARE, OTHER, SELFPAY ==
[2019-07-11 11:24] LABS: Add Manual Diff / Slide Review NO; Basophils Absolute Auto 0 /uL (0-100); Basophils Percent Auto 1.2 % (0-2); Eosinophils Absolute Auto 100 /uL (0-450); Eosinophils Percent Auto 2.7 % (2-4); Hematocrit 41.2 % (36-46); Hemoglobin 14.2 g/dL (12.0-16.0); Lymphocytes Absolute Auto 1000 /uL (1100-4500); Lymphocytes Percent Auto 29.2 % (25-40); Mean Corpuscular HGB Conc 34.5 % (30-36); Mean Corpuscular Hemoglobin 32.3 PG (26-34); Mean Corpuscular Volume 93.6 fL (80-100); Monocytes Absolute Auto 400 /uL (0-900); Monocytes Percent Auto 10.4 % (3-14); Neutrophils Absolute Auto 1900 /uL (1500-7000); Neutrophils Percent Auto 56.5 % (50-75); Platelet Count 191 X10^3/uL (150-400); Red Cell Distribution Width 13.5 % (11.6-14.8); White Blood Cell Count 3.4 X10^3/uL (4.5-11.0)
[2019-07-11 11:38] LABS: Alanine Aminotransferase 36 IU/L (<35); Albumin 4.4 g/dL (3.5-5.0); Albumin Globulin Ratio 1.5 (1.0-2.8); Alkaline Phosphatase 72 U/L (38-126); Aspartate Aminotransferase 34 IU/L (14-36); BUN Creatinine Ratio 22.5 (6-22); Bilirubin Total 0.4 mg/dL (0.2-1.3); Blood Urea Nitrogen 18 mg/dL (7-17); Calcium 9.5 mg/dL (8.4-10.2); Carbon Dioxide 32 mmol/L (22-32); Chloride 98 mmol/L (98-107); Estimated Glomerular Filt Rate > 60.0 mL/min (>60); Globulin 2.9 g/dL (1.7-4.1); Glucose 88 mg/dL (80-110); HEMOLYSIS < 15 (0-50); Potassium 4.1 mmol/L (3.4-5.1); Sodium 136 mmol/L (137-145); Total Protein 7.3 g/dL (6.3-8.2)
[2019-07-11 12:08] LABS: TSH w/ Reflex to FT4 0.65 uIU/mL (0.47-4.68)
[2019-07-11 12:44] LABS: Folate 12.1 ng/mL (2.76-20.0); Vitamin B12 382 pg/mL (239-931)
[2019-07-11 17:43] LABS: HDL Cholesterol 49 mg/dL (40-60)
[2019-07-11 17:44] LABS: LDL Cholesterol Calculated 113 mg/dL (<100)
[2019-07-11 17:45] LABS: Cholesterol 182 mg/dL (140-199)
[2019-07-11 17:47] LABS: Triglycerides 101 mg/dL (35-150); VLDL Cholesterol Calculated 20 mg/dL (2-30)
[2019-07-13 15:15] LABS: Homocysteine 13.7 umol/L (< 10.4)
[2019-07-17 19:10] LABS: Methylmalonic Acid 307 nmol/L (87-318)
== END ==
PROVIDERS: PCP Family Medicine; Visit Provider Family Medicine
DX: I10 Essential (primary) hypertension (principal); E78.2 Mixed hyperlipidemia; D70.8 Other neutropenia; R10.2 Pelvic and perineal pain
CPT/HCPCS: 36415; 80053; 80061; 82607; 82746; 83090; 83921; 84443; 85025

== ENCOUNTER → 2019-09-02 12:52 | Outpatient (CLI) | payer MEDICARE, OTHER, SELFPAY ==
[2019-09-02 14:00] LABS: Add Manual Diff / Slide Review NO; Basophils Absolute Auto 0 /uL (0-100); Basophils Percent Auto 1.2 % (0-2); Eosinophils Absolute Auto 100 /uL (0-450); Eosinophils Percent Auto 2.8 % (2-4); Hematocrit 42.9 % (36-46); Hemoglobin 14.7 g/dL (12.0-16.0); Lymphocytes Absolute Auto 1200 /uL (1100-4500); Lymphocytes Percent Auto 33.7 % (25-40); Mean Corpuscular HGB Conc 34.4 % (30-36); Mean Corpuscular Hemoglobin 32.5 PG (26-34); Mean Corpuscular Volume 94.7 fL (80-100); Monocytes Absolute Auto 400 /uL (0-900); Neutrophils Absolute Auto 1900 /uL (1500-7000); Neutrophils Percent Auto 52.3 % (50-75); Platelet Count 193 X10^3/uL (150-400); Red Blood Cell Count 4.53 X10^6/uL (4.0-5.2); Red Cell Distribution Width 13.4 % (11.6-14.8); White Blood Cell Count 3.6 X10^3/uL (4.5-11.0)
[2019-09-02 14:14] LABS: Alanine Aminotransferase 27 IU/L (<35); Albumin 4.6 g/dL (3.5-5.0); Albumin Globulin Ratio 1.5 (1.0-2.8); Alkaline Phosphatase 81 U/L (38-126); Aspartate Aminotransferase 30 IU/L (14-36); BUN Creatinine Ratio 23.5 (6-22); Bilirubin Total 0.4 mg/dL (0.2-1.3); Blood Urea Nitrogen 19 mg/dL (7-17); Calcium 10.3 mg/dL (8.4-10.2); Carbon Dioxide 30 mmol/L (22-32); Chloride 98 mmol/L (98-107); Estimated Glomerular Filt Rate > 60.0 mL/min (>60); Globulin 3.1 g/dL (1.7-4.1); Glucose 96 mg/dL (80-110); HEMOLYSIS 21 (0-50); Potassium 4.2 mmol/L (3.4-5.1); Sodium 137 mmol/L (137-145); Total Protein 7.7 g/dL (6.3-8.2)
[2019-09-02 14:53] LABS: Vitamin D 25 Hydroxy (D3) 45.1 ng/mL (30.0-100.0)
== END ==
PROVIDERS: PCP Family Medicine; Referring Provider Student in an Organized Health Care Education/Training Program; Visit Provider Student in an Organized Health Care Education/Training Program
DX: C50.412 Malignant neoplasm of upper-outer quadrant of left female breast (principal)
CPT/HCPCS: 36415; 80053; 82306; 85025

== ENCOUNTER → 2020-03-10 14:17 | Outpatient (CLI) | payer MEDICARE, OTHER, SELFPAY ==
--- NOTE | 2020-03-10 | DI.RAD.S_ITS ---
PROCEDURE: XR SHOULDER RT MIN 2V INDICATIONS: RIGHT SHOULDER PAIN TECHNIQUE: 3 views of the shoulder were acquired. COMPARISON: [facility], , XR CXR 2V, 05/30/2005, 12:24. FINDINGS: Bones: No fractures or dislocations. No suspicious bony lesions. Visualized ribs appear intact. Mild joint narrowing with periarticular osteophyte formation. Soft tissues: Calcification involving the rotator cuff. IMPRESSION: 1. Mild acromioclavicular and glenohumeral joint degeneration. 2. Calcific tendinitis of the rotator cuff. Dictated by: Hakeem FISHER Interpreted: Wellington Garcia MD on 03/10/2020 at 16:59 Approved by: Wellington Garcia M.D. on 03/10/2020 at 17:23
== END ==
PROVIDERS: PCP Family Medicine; Referring Provider Chiropractor; Visit Provider Chiropractor
DX: M25.511 Pain in right shoulder (principal); M19.011 Primary osteoarthritis, right shoulder; M75.31 Calcific tendinitis of right shoulder
CPT/HCPCS: 73030

== ENCOUNTER → 2021-01-07 15:31 | Outpatient (CLI) | payer MEDICARE, OTHER, SELFPAY | PROVIDERS: PCP Family Medicine; Referring Provider Family Medicine; Visit Provider Family Medicine | DX: N30.00 Acute cystitis without hematuria (principal) | CPT/HCPCS: 87086 ==

== ENCOUNTER → 2022-03-23 12:11 | Outpatient (CLI) | payer MEDICARE, OTHER, SELFPAY ==
--- NOTE | 2022-03-23 12:17 | DI.CT.S_ITS ---
PROCEDURE: CT CHEST WO CON INDICATIONS: Other forms of dyspnea TECHNIQUE: Noncontrast 5 mm thick sections acquired from the pulmonary apices to the posterior costophrenic angles. 1 mm lung window, 5 mm thick coronal and sagittal and 7 mm axial MIP reformats were then acquired. For radiation dose reduction, the following was used: automated exposure control, adjustment of mA and/or kV according to patient size. COMPARISON: None. FINDINGS: Image quality: Excellent. Lungs and pleura: Left middle lobe medial consolidation against the heart border measures 5 mm in thickness and 4.5 cm in length. No focal infiltrate, nodule or pleural effusion.. Remainder of the lungs and pleural spaces are clear Mediastinum: Heart size is normal. No pericardial effusion. No mediastinal adenopathy by size criteria. Thoracic aorta and central pulmonary arteries are normal in size. Esophagus is normal in caliber. No hiatal hernia. Bones and chest wall: No suspicious bony lesions. No vertebral body compression fractures. No axillary or supraclavicular adenopathy by size criteria. Thyroid gland unremarkable . Abdomen: Visualized upper abdominal solid organs and bowel loops appear normal in the absence of contrast. IMPRESSION: 1. Small right middle lobe focal medial consolidation. No pulmonary nodule, infiltrate or pneumothorax Approved by: Sp Leyva M.D. on 03/23/2022 at 16:44
== END ==
PROVIDERS: PCP Family Medicine; Referring Provider Family Medicine; Visit Provider Family Medicine
DX: R06.09 Other forms of dyspnea (principal)
CPT/HCPCS: 71250

== ENCOUNTER 2022-09-06 10:00 | Day surgery (SDC) | payer MEDICARE, OTHER, SELFPAY ==
--- NOTE | 2022-09-06 | PATH_ITS ---
[facility] Accession Number: [id number] No. of containers..01 Tissue . 01 Material submitted: . rectum - RECTUM . 01 Diagnosis: Rectum, Biopsy: Hyperplastic colonic mucosa. Negative for active, chronic and microscopic colitis. Negative for dysplasia and malignancy. MRV 09/09/2022 1428 Local . 01 Electronically signed: . Iris Rutledge MD, Pathologist NPI- [id number] . 01 Gross description: . RECTUM: Received in formalin is 1 fragment(s) of ahumada, soft tissue measuring 0.3 x 0.2 x 0.1 cm submitted entirely in 1 cassette(s) /CPE 09/07/2022 0638 Local . 01 Pathologist provided ICD-10: Z80.0, Z86.010 . 01 CPT . 747168 Specimen Comment: A courtesy copy of this report has been sent to [phone] Performed at: 01 [facility] [address] [place] [address], [place], [place] [id number] MD Ramiro Lambert MD Phone: [phone]
[2022-09-06 10:18] VITALS: BP 129/77; PULSE 75; RESP 16; TEMP 36.4; O2SAT 97; BMI 28.1
[2022-09-06] MEDS: LACTATED RINGERS 1,000 ML 200 ML IV (10:24)
--- NOTE | 2022-09-06 11:27 | PM.HP.1 ---
History of Present Illness History of Present Illness Date Patient Seen: 09/06/22 Time Patient Seen: 11:27 Chief complaint: SDC Narrative: The patient presents for colorectal screening. Her mother has a history of colon cancer. She is a personal history of colonic polyps last colonoscopy 5 years ago. On further history denies any recent gastrointestinal symptoms. No nausea, vomiting, abdominal pain, loss of appetite, unexplained weight loss, change in bowel habits, or blood per rectum. Patient History Medical History (Updated 09/06/22 @ 11:28 by Christiano Paris MD) Chronic lower limb pain History of torn meniscus of left knee HTN (hypertension) Hyperlipidemia Pelvic floor dysfunction Urethral pain Surgical History (Updated 09/06/22 @ 10:17 by Osman Huerta RN) History of cataract surgery History of left knee surgery No history of previous surgery S/P breast lumpectomy Family & Social History Social History: household members spouse Tobacco & Substance use: Smoking Status Never smoker alcohol intake current alcohol intake frequency a few times a week Substance Use Type does not use Meds Home Medications and Allergies Home Medications Medication Instructions Recorded Confirmed Type calcium carbonate 600 mg calcium 600 mg PO DAILY ##0 11/03/16 09/06/22 History (1,500 mg) tablet pregabalin 200 mg capsule (Lyrica) 300 mg PO BEDTIME ##0 11/03/16 09/06/22 History cholecalciferol (vitamin D3) 25 1,000 unit PO DAILY 10/26/18 09/06/22 History mcg (1,000 unit) tablet (Vitamin D3) duloxetine 60 mg capsule,delayed 60 mg PO BEDTIME 10/26/18 09/06/22 History release lisinopril 10 mg tablet 10 mg PO DAILY 10/26/18 09/06/22 History lovastatin 10 mg tablet 10 mg PO QPM 10/26/18 09/06/22 History triamterene 37.5 1 tab PO DAILY 10/26/18 09/06/22 History mg-hydrochlorothiazide 25 mg tablet Allergies Allergy/AdvReac Type Severity Reaction Status Date / Time No Known Drug Allergies Allergy Verified 10/26/18 19:28 Exam Vital Signs (past 8 hours): - 09/06/22 10:18 Temperature 97.6 F Pulse Rate 75 Respiratory Rate 16 Blood Pressure 129/77 Pulse Oximetry 97 Narrative Exam Narrative: General adult woman alert oriented no acute distress Assessment & Plan Assessment and plan (1) Personal history of colonic polyps: Status: Acute Assessment & Plan narrative: The patient requires colorectal screening and colonoscopy is recommended. Technical details were discussed. Risks, benefits, alternatives explained. Risks including but not limited to myocardial infarction, aspiration, bleeding, pain, missed lesion, incomplete examination, need for further radiographic studies, colonic perforation, and need for major abdominal surgery were discussed. All questions were answered to their satisfaction, and they are in agreement with this plan. Time Spent With Patient Critical Care time: I spent a total of [] minutes of critical care time on this patient's care today; this time is exclusive of procedural time.
--- NOTE | 2022-09-06 11:28 | PM.OP.COLON ---
Operative Date/Time/Diagnoses Date of procedure: 09/06/22 Time of procedure: 11:28 Pre-op diagnosis: Personal history of colonic polyps Family history of colon cancer Post-op diagnosis: other (Colonic polyps x1) Procedure & Clinicians Study performed: Colonoscopy Same procedure as scheduled: Yes Indications: Personal history of colonic polyps, family history of colon cancer Surgeon: Christiano Paris Procedure Notes Procedure in detail: The history and physical was performed/updated and the patient is ASA class is 2. The procedure was discussed in detail with the patient. Potential risks complications including infection, bleeding, missed diagnosis, perforation, need for surgery, and were explained. Their questions were answered and informed consent was obtained. Patient was brought to the procedure room and placed standard monitoring equipment. The patient's vital signs were monitored continuously throughout the entire procedure. Prior to starting time-out was performed. The patient was placed in the left lateral recumbent position. Procedural sedation was administered by anesthesia. Examination began with a thorough inspection of the perianal area there was no evidence of fissures, fistulae, external hemorrhoids or cutaneous malignancy. The colonoscopy scope was then placed into the anal canal and was advanced to the cecum, which was identified by the ileocecal valve, the appendiceal orifice and the confluence of the taenia. The scope was then slowly withdrawn examining colon thoroughly in all directions, irrigating it of any residual stool. Within the rectum there was a 5 mm polyp removed with biopsy forceps. The remainder of the colon was normal its appearance. The patient tolerated the procedure well. They will be discharged once criteria are met. The prep was of good/excellent quality. The withdrawl time was 12 minutes. Specimen(s): other (Rectal polyp) Impression: Colonic polyp x1 Post-procedure Recommendations: Colonoscopy in 5 years Disposition: same day surgery
[2022-09-06 11:55] VITALS: BP 118/60; PULSE 64; RESP 19; TEMP 36.2; O2SAT 99
[2022-09-06 12:00] VITALS: BP 119/65; PULSE 76; RESP 16; O2SAT 95
[2022-09-06 12:05] VITALS: BP 133/68; PULSE 64; RESP 17; TEMP 36.2; O2SAT 97
[2022-09-06 12:07] VITALS: BP 136/72; PULSE 61; RESP 15; O2SAT 97
== END 2022-09-06 12:22 | disposition home or self-care (01) ==
PROVIDERS: PCP Family Medicine; Referring Provider Surgery; Visit Provider Surgery
PROC: 0DJD8ZZ Inspection of Lower Intestinal Tract, Via Natural or Artificial Opening Endoscopic (ICD-10-PCS; CPT 45378; principal; 2022-09-06 11:00)
DX: Z12.11 Encounter for screening for malignant neoplasm of colon (principal); Z86.010 Personal history of colon polyps; K62.1 Rectal polyp
CPT/HCPCS: 45380; J2704

== ENCOUNTER → 2022-09-27 12:17 | Outpatient (CLI) | payer MEDICARE, OTHER, SELFPAY ==
--- NOTE | 2022-09-27 | DI.CT.S_ITS ---
PROCEDURE: CT CHEST WO CON INDICATIONS: CHRONIC COUGH TECHNIQUE: Noncontrast 5 mm thick sections acquired from the pulmonary apices to the posterior costophrenic angles. 1 mm lung window, 5 mm thick coronal and sagittal and 7 mm axial MIP reformats were then acquired. For radiation dose reduction, the following was used: automated exposure control, adjustment of mA and/or kV according to patient size. COMPARISON: [facility], CT, CT CHEST WO CON, 03/23/2022, 12:32. FINDINGS: Image quality: Excellent. Lungs and pleura: Trace tree-in-bud pulmonary radiopacities are present at the lateral right lung base (series 3/image 206). These are likely unchanged when compared with the study dated March 23, 2022 and may represent pulmonary scar or mild, chronic infection. Atelectasis or scarring is redemonstrated at the anterior right lung base (series 3/image 201). Some bronchiectasis is associated with this region and this is unchanged from the prior study from 2021. Stable bronchiectasis is also noted at the anterior lingular base. No new acute airspace opacities. No new pulmonary nodules. No pleural effusion or pneumothorax. Mediastinum: Heart size is normal. No pericardial effusion. No mediastinal adenopathy by size criteria. Thoracic aorta and central pulmonary arteries are normal in size. Esophagus is normal in caliber. No hiatal hernia. Bones and chest wall: No suspicious bony lesions. No vertebral body compression fractures. No axillary or supraclavicular adenopathy by size criteria. Thyroid gland is unremarkable . Abdomen: Visualized upper abdominal solid organs and bowel loops appear normal in the absence of contrast. IMPRESSION: 1. No new acute airspace opacities or pulmonary nodules. 2. Trace tree-in-bud pulmonary radiopacities unchanged from March, and atelectasis or scarring at the anterior right lung base, also unchanged. 3. Mild, stable bronchiectasis at the anterior lung bases bilaterally. Dictated by: Priscila Monsivais M.D. on 09/27/2022 at 15:10 Approved by: Priscila Monsivais M.D. on 09/27/2022 at 15:15
== END ==
PROVIDERS: PCP Family Medicine; Referring Provider Family Medicine; Visit Provider Family Medicine
DX: R05.3 Chronic cough (principal)
CPT/HCPCS: 71250

== ENCOUNTER → 2023-03-17 10:41 | Outpatient (CLI) | payer MEDICARE, OTHER, SELFPAY ==
[2023-03-17 12:23] LABS: Alanine Aminotransferase 43 IU/L (<35); Albumin 4.4 g/dL (3.5-5.0); Albumin Globulin Ratio 1.7 (1.0-2.8); Alkaline Phosphatase 70 U/L (38-126); Aspartate Aminotransferase 29 IU/L (14-36); BUN Creatinine Ratio 15.7 (6-22); Bilirubin Total 0.4 mg/dL (0.2-1.3); Blood Urea Nitrogen 16 mg/dL (7-17); Calcium 10.4 mg/dL (8.4-10.2); Carbon Dioxide 29 mmol/L (22-32); Chloride 101 mmol/L (98-107); Estimated Glomerular Filt Rate 58 mL/min (>60); Globulin 2.6 g/dL (1.7-4.1); Glucose 81 mg/dL (80-110); HEMOLYSIS < 15 (0-50); Potassium 4.8 mmol/L (3.4-5.1); Sodium 139 mmol/L (137-145)
== END ==
PROVIDERS: PCP Family Medicine; Referring Provider Family Medicine; Visit Provider Family Medicine
DX: R74.01 Elevation of levels of liver transaminase levels (principal); N28.9 Disorder of kidney and ureter, unspecified
CPT/HCPCS: 36415; 80053

== ENCOUNTER → 2023-03-22 09:49 | Outpatient (CLI) | payer MEDICARE, OTHER, SELFPAY | PROVIDERS: PCP Family Medicine; Referring Provider Internal Medicine; Visit Provider Internal Medicine | DX: R06.09 Other forms of dyspnea (principal) | CPT/HCPCS: 94060 ==

== ENCOUNTER → 2023-04-27 13:54 | Outpatient (CLI) | payer MEDICARE, OTHER, SELFPAY ==
[2023-04-27 16:14] LABS: Alanine Aminotransferase 39 IU/L (<35); Albumin 4.4 g/dL (3.5-5.0); Albumin Globulin Ratio 1.5 (1.0-2.8); Alkaline Phosphatase 56 U/L (38-126); Aspartate Aminotransferase 36 IU/L (14-36); BUN Creatinine Ratio 27.2 (6-22); Bilirubin Total 0.4 mg/dL (0.2-1.3); Blood Urea Nitrogen 22 mg/dL (7-17); Calcium 9.9 mg/dL (8.4-10.2); Carbon Dioxide 28 mmol/L (22-32); Chloride 99 mmol/L (98-107); Estimated Glomerular Filt Rate > 60 mL/min (>60); Globulin 2.9 g/dL (1.7-4.1); Glucose 83 mg/dL (80-110); HEMOLYSIS 16 (0-50); Potassium 4.1 mmol/L (3.4-5.1); Sodium 135 mmol/L (137-145); Total Protein 7.3 g/dL (6.3-8.2)
== END ==
PROVIDERS: PCP Family Medicine; Referring Provider Family Medicine; Visit Provider Family Medicine
DX: R74.01 Elevation of levels of liver transaminase levels (principal); N28.9 Disorder of kidney and ureter, unspecified
CPT/HCPCS: 36415; 80053

== ENCOUNTER → 2023-08-10 14:30 | Outpatient (CLI) | payer MEDICARE, OTHER, SELFPAY ==
[2023-08-10 16:51] LABS: HEMOLYSIS < 15 (0-50); Iron 87 ug/dL (37-170)
[2023-08-10 17:03] LABS: Percent Iron Saturation 30 % (15-50); Total Iron Binding Capacity 286 ug/dL (265-497); Transferrin 224 mg/dL (206-381)
[2023-08-10 17:04] LABS: Alanine Aminotransferase 33 IU/L (<35); Albumin 4.4 g/dL (3.5-5.0); Albumin Globulin Ratio 1.6 (1.0-2.8); Alkaline Phosphatase 66 U/L (38-126); Aspartate Aminotransferase 31 IU/L (14-36); BUN Creatinine Ratio 27.9 (6-22); Bilirubin Total 0.4 mg/dL (0.2-1.3); Blood Urea Nitrogen 24 mg/dL (7-17); Calcium 9.6 mg/dL (8.4-10.2); Carbon Dioxide 27 mmol/L (22-32); Chloride 101 mmol/L (98-107); Estimated Glomerular Filt Rate > 60 mL/min (>60); Globulin 2.8 g/dL (1.7-4.1); Glucose 94 mg/dL (80-110); HEMOLYSIS < 15 (0-50); Potassium 4.3 mmol/L (3.4-5.1); Sodium 136 mmol/L (137-145); Total Protein 7.2 g/dL (6.3-8.2)
== END ==
PROVIDERS: PCP Family Medicine; Referring Provider Family Medicine; Visit Provider Family Medicine
DX: R74.01 Elevation of levels of liver transaminase levels (principal); R79.89 Other specified abnormal findings of blood chemistry
CPT/HCPCS: 36415; 80053; 83540; 83550

== ENCOUNTER → 2024-02-26 08:32 | Outpatient (CLI) | payer MEDICARE, OTHER, SELFPAY ==
[2024-02-26 09:45] LABS: HEMOLYSIS < 15 (0-50); Iron 125 ug/dL (37-170)
[2024-02-26 09:56] LABS: Percent Iron Saturation 40 % (15-50); Total Iron Binding Capacity 314 ug/dL (265-497); Transferrin 245 mg/dL (206-381)
[2024-02-26 10:15] LABS: Alanine Aminotransferase 31 IU/L (<35); Albumin 4.1 g/dL (3.5-5.0); Albumin Globulin Ratio 1.5 (1.0-2.8); Alkaline Phosphatase 66 U/L (38-126); Aspartate Aminotransferase 28 IU/L (14-36); BUN Creatinine Ratio 22.5 (6-22); Bilirubin Total 0.5 mg/dL (0.2-1.3); Blood Urea Nitrogen 20 mg/dL (7-17); Calcium 10.1 mg/dL (8.4-10.2); Carbon Dioxide 30 mmol/L (22-32); Chloride 103 mmol/L (98-107); Estimated Glomerular Filt Rate > 60 mL/min (>60); Globulin 2.7 g/dL (1.7-4.1); Glucose 90 mg/dL (80-110); HEMOLYSIS < 15 (0-50); Potassium 4.5 mmol/L (3.4-5.1); Sodium 136 mmol/L (137-145); Total Protein 6.8 g/dL (6.3-8.2)
== END ==
LOC: LAB 08:33
PROVIDERS: PCP Family Medicine; Referring Provider Family Medicine; Visit Provider Family Medicine
DX: R74.01 Elevation of levels of liver transaminase levels (principal); R79.89 Other specified abnormal findings of blood chemistry
CPT/HCPCS: 36415; 80053; 83540; 83550

== ENCOUNTER → 2024-06-10 10:14 | Outpatient (CLI) | payer MEDICARE, OTHER, SELFPAY ==
[2024-06-10 11:12] LABS: Add Manual Diff / Slide Review NO; Basophils Absolute Auto 0 /uL (0-100); Basophils Percent Auto 1.3 % (0-2); Eosinophils Absolute Auto 100 /uL (0-450); Eosinophils Percent Auto 2.3 % (2-4); Hematocrit 41.5 % (36-46); Hemoglobin 13.9 g/dL (12.0-16.0); Lymphocytes Absolute Auto 1500 /uL (1100-4500); Mean Corpuscular HGB Conc 33.5 % (30-36); Mean Corpuscular Hemoglobin 31.9 PG (26-34); Mean Corpuscular Volume 95.4 fL (80-100); Monocytes Absolute Auto 300 /uL (0-900); Monocytes Percent Auto 8.8 % (3-14); Neutrophils Absolute Auto 1800 /uL (1500-7000); Neutrophils Percent Auto 48.6 % (50-75); Platelet Count 191 X10^3/uL (150-400); Red Blood Cell Count 4.35 X10^6/uL (4.0-5.2); Red Cell Distribution Width 13.6 % (11.6-14.8); White Blood Cell Count 3.8 X10^3/uL (4.5-11.0)
[2024-06-10 11:30] LABS: HEMOLYSIS < 15 (0-50); Iron 150 ug/dL (37-170)
[2024-06-10 11:42] LABS: Alanine Aminotransferase 28 IU/L (<35); Albumin 4.2 g/dL (3.5-5.0); Albumin Globulin Ratio 1.8 (1.0-2.8); Alkaline Phosphatase 74 U/L (38-126); Aspartate Aminotransferase 28 IU/L (14-36); BUN Creatinine Ratio 27.3 (6-22); Bilirubin Total 0.4 mg/dL (0.2-1.3); Blood Urea Nitrogen 24 mg/dL (7-17); C-Reactive Protein Quant < 0.5 mg/dL (<1.0); Calcium 9.9 mg/dL (8.4-10.2); Carbon Dioxide 29 mmol/L (22-32); Chloride 102 mmol/L (98-107); Estimated Glomerular Filt Rate > 60 mL/min (>60); Globulin 2.4 g/dL (1.7-4.1); Glucose 95 mg/dL (80-110); HEMOLYSIS < 15 (0-50); Percent Iron Saturation 56 % (15-50); Potassium 4.4 mmol/L (3.4-5.1); Sodium 136 mmol/L (137-145); Total Iron Binding Capacity 270 ug/dL (265-497); Total Protein 6.6 g/dL (6.3-8.2); Transferrin 240 mg/dL (206-381)
[2024-06-10 11:50] LABS: Vitamin D 25 Hydroxy (D3) 66.3 ng/mL (30.0-100.0)
[2024-06-10 11:55] LABS: Free T4, Direct Thyroxine 1.03 ng/dL (0.78-2.19)
[2024-06-10 12:09] LABS: Thyroid Stimulating Hormone 0.846 uIU/mL (0.47-4.68)
[2024-06-10 12:47] LABS: Folate > 20.0 ng/mL (2.76-20.0); Vitamin B12 630 pg/mL (239-931)
[2024-06-11 04:36] LABS: Apolipoprotein B 70 mg/dL (<90)
== END ==
PROVIDERS: PCP Family Medicine; Referring Provider Family Medicine; Visit Provider Family Medicine
DX: I10 Essential (primary) hypertension (principal); K90.9 Intestinal malabsorption, unspecified; E78.2 Mixed hyperlipidemia; R06.09 Other forms of dyspnea; Z86.2 Personal history of diseases of the blood and blood-forming organs and certain disorders involving the immune mechanism; R79.89 Other specified abnormal findings of blood chemistry
CPT/HCPCS: 36415; 80053; 80061; 82172; 82306; 82607; 82746; 83540; 83550; 84439; 84443; 85025; 86140

== ENCOUNTER → 2025-03-17 15:49 | Outpatient (CLI) | payer MEDICARE, OTHER, SELFPAY ==
[2025-03-17 17:07] LABS: Alanine Aminotransferase 22 IU/L (<35); Albumin 4.4 g/dL (3.5-5.0); Albumin Globulin Ratio 1.6 (1.0-2.8); Alkaline Phosphatase 54 U/L (38-126); Blood Urea Nitrogen 14 mg/dL (7-17); Calcium 9.6 mg/dL (8.4-10.2); Carbon Dioxide 32 mmol/L (22-32); Chloride 99 mmol/L (98-107); Estimated Glomerular Filt Rate > 60 mL/min (>60); Globulin 2.7 g/dL (1.7-4.1); Glucose 77 mg/dL (70-99); HEMOLYSIS < 15 (0-50); Potassium 4.7 mmol/L (3.4-5.1); Sodium 134 mmol/L (137-145); Total Protein 7.1 g/dL (6.3-8.2)
== END ==
PROVIDERS: PCP Family Medicine; Referring Provider Family Medicine; Visit Provider Family Medicine
DX: R74.01 Elevation of levels of liver transaminase levels (principal); Z87.448 Personal history of other diseases of urinary system
CPT/HCPCS: 36415; 80053